=== PATIENT | male | born 1940 | race Caucasian/White ===

== ENCOUNTER 2016-07-09 13:11 | Emergency (ER) | payer MEDICARE ==
[2016-07-09] MEDS ORDERED: KETOROLAC 30 MG/ML VIAL (J1885) As Ordered ONE (14:29)
[2016-07-09] MEDS ORDERED: ONDANSETRON 4MG/2ML VIAL (J2405) As Ordered ONE (14:29)
[2016-07-09 14:45] LABS: BASO # 0.2 K/mm3 (0.0-0.2); BASO % 1.8 % (0.0-1.0); EOS # 0.3 K/mm3 (0.0-0.50); EOS % 3.6 % (0.0-3.0); LARGE UNSTAINED CELL # 0.1 K/mm3 (0.0-0.4); LARGE UNSTAINED CELL % 1.3 % (0.0-4.0); LYMPH # 1.5 K/mm3 (1.5-4.5); LYMPH % 16.7 % (24.0-44.0); MEAN CORPUSCULAR HEMOGLOBIN 31.4 pg (27.0-33.0); MEAN CORPUSCULAR HGB CONC 34.2 g/dl (32.0-36.5); MEAN CORPUSCULAR VOLUME 91.8 fl (80.0-96.0); MONO # 0.6 K/mm3 (0.0-0.8); MONO % 7.2 % (0.0-5.0); NEUTROPHILS # 5.9 K/mm3 (1.8-7.7); NEUTROPHILS % 69.3 % (36.0-66.0); PLATELET COUNT, AUTOMATED 230 k/mm3 (150-450); RED CELL DISTRIBUTION WIDTH 13.6 % (11.5-14.5); WHITE BLOOD COUNT 8.5 K/mm3 (4.0-10.0)
[2016-07-09 14:54] LABS: INR 1.01
[2016-07-09 15:50] LABS: ALBUMIN/GLOBULIN RATIO 1.67 (1.00-1.93); ALKALINE PHOSPHATASE 79 U/L (45-117); ALT/SGPT 29 U/L (12-78); AMYLASE 94 U/L (25-115); ANION GAP 7 MEQ/L (8-16); AST/SGOT 21 U/L (15-37); BILIRUBIN,DIRECT 0.1 MG/DL (0.0-0.2); BILIRUBIN,TOTAL 0.5 MG/DL (0.2-1.0); BLOOD UREA NITROGEN 19 MG/DL (7-18); CALCIUM LEVEL 9.2 MG/DL (8.8-10.2); CARBON DIOXIDE LEVEL 29 MEQ/L (21-32); CHLORIDE LEVEL 111 MEQ/L (98-107); CREATININE FOR GFR 0.87 MG/DL (0.70-1.30); GLOMERULAR FILTRATION RATE > 60.0 (>42); GLUCOSE, FASTING 91 MG/DL (83-110); POTASSIUM SERUM 4.2 MEQ/L (3.5-5.1); SODIUM LEVEL 147 MEQ/L (136-145); TOTAL PROTEIN 6.4 GM/DL (6.4-8.2)
--- NOTE | 2016-07-09 16:08 | EDDOCDS ---
Nurse's Notes [facility] Name: Robel Padron Age: 75 yrs Sex: Male : 1940 Arrival Date: 07/09/2016 Time: 13:11 Bed 12 Private MD: Dl Mancia M Diagnosis: Abdominal and pelvic pain Presentation: 07/09 13:16 Presenting complaint: Patient states: Right inguinal pain since last nigh. relief with rs3 sitting and lying. worse with walking. Adult Sepsis Screening: The patient does not have new or worsening altered mentation. Patient's respiratory rate is less than 22. Systolic blood pressure is greater than 100. Patient has a qSOFA score of 0- Negative Sepsis Screen. Suicide/Homicide risk assessment- the patient denies having any suicidal and/or homicidal ideations and does not present with any other emotional, behavioral or mental health complaints. Status: Patient is not a sales service professional or dependent. Transition of care: patient was not received from another setting of care. 13:16 Acuity: RABIA Level 3 rs3 13:16 Method Of Arrival: Walkin/Carried/Asstd rs3 Triage Assessment: 13:18 General: Appears in no apparent distress. Pain: Location: right femoral area. GI: rs3 Reports lower abdominal pain. Historical: - Allergies: PENICILLINS (Unknown); - Home Meds: 1. verapamil 240 mg Oral TbER 1 tab once daily 2. lisinopril 10 mg Oral tab 1 tab once daily - PMHx: BPH; Chronic Back pain; Hypertension; Kidney stones; - PSHx: Skin Cancer removal; Hernia repair; - Social history: Smoking status: Patient states former smoker of tobacco. No barriers to communication noted, The patient speaks fluent German. - Family history: Not pertinent. - : The pt / caregiver states he / she is not on anticoagulants. Home medication list is obtained from the patient. - Exposure Risk Screening:: None identified. Screenin:35 Screening information is obtained from the patient. Fall risk: No risks identified. pml Assistance ADL's: requires no assistance with activities of daily living. Abuse/DV Screen: The patient / caregiver reports he/she is: not in a situation that causes fear, pain or injury. Nutritional screening: No deficits noted. Advance Directives: Currently, there is no health care proxy. home support is adequate. Assessment: 14:35 General: Appears in no apparent distress, Behavior is appropriate for age, cooperative. pml Pain: Location: right lower quadrant Pain currently is 8 out of 10 on a pain scale. Neurological: Level of Consciousness is awake, alert, Oriented to person, place, time. Cardiovascular: Capillary refill < 3 seconds. Respiratory: Airway is patent Respiratory effort is even, unlabored. GI: Abdomen is non- distended Bowel sounds present X 4 quads. Abd is soft X 4 quads Reports lower abdominal pain, Denies nausea, vomiting. : Denies burning with urination, inability to void. Derm: Skin is pink, warm & dry. 16:04 General: Appears in no apparent distress, comfortable, Behavior is appropriate for age, kc3 cooperative. Neurological: Level of Consciousness is awake, alert, obeys commands, Oriented to person, place, time. Respiratory: Respiratory effort is even, unlabored. Derm: Skin is pink, warm & dry. Vital Signs: 13:12 BP 174 / 79; Pulse 65; Resp 16; Temp 97.0(O); Pulse Ox 99% on R/A; Weight 89.81 kg (R); elp Height 6 ft. 1 in. (185.42 cm) (R); 16:05 BP 179 / 83; Pulse 62; Resp 18; Temp 97(O); Pulse Ox 97% on R/A; kc3 13:12 Body Mass Index 26.12 (89.81 kg, 185.42 cm) el Vitals: 13:12 Log In Time: July 09, 2016 at 13:10. el ED Course: 13:12 Patient visited by Edith Soto PCA. elp 13:12 Dl Mancia is Private Physician. elp 13:12 Patient moved to Waiting elp 13:13 Patient visited by Edith Soto PCA. elp 13:13 Patient moved to Pre RCE elp 13:17 Triage Initiated rs3 13:51 Alyssa Yan,REJI is Primary Nurse. jjr 13:51 Patient moved to 12 jjr 13:59 [facility] ke 13:59 Patient visited by Avinsah Vo FNP. ke 13:59 Patient visited by Avinash Vo FNP. ke 14:35 The patient / caregiver is instructed regarding the plan of care and ED course. Patient pml has correct armband on for positive identification. Placed in gown. Bed in low position. Call light in reach. Side rails up X2. 14:36 Patient visited by Alyssa Yan RN. [facility] 14:36 Inserted peripheral IV: 18gauge IV in left antecubital area and blood collected. pml Patient tolerated the procedure well. 15:13 Patient visited by Avinash Vo FNP. марина 15:44 Patient visited by Avinash Vo FNP. ke 15:55 Dl Mancia is Referral Physician. ke 16:04 Discontinued IV lock intact, bleeding controlled, pressure dressing applied, No kc3 redness/swelling at site. No procedures done that require assistance. Administered Medications: 14:41 Drug: NS 0.9% 1000 ml [sodium chloride 0.9 % injection syringe] Route: IV; Rate: 100 pml mL/hr; Site: left antecubital; 14:42 Drug: Ondansetron 4 mg [ondansetron HCl 2 mg/mL intravenous solution (2 mL)] Route: pml IVP; Site: left antecubital; 14:42 Drug: ketorolac 30 mg [ketorolac 30 mg/mL (1 mL) injection solution (1 mL)] Route: IVP; pml Site: left antecubital; Order Results: Lab Order: Amylase; SPEC'M 07/09/16 15:05 Test: AMYLASE; Value: 94; Range: 25-115; Units: U/L; Status: F Lab Order: Basic Metabolic Profile; SPEC'M 07/09/16 15:05 Test: GLUCOSE, FASTING; Value: 91; Range: 83-110; Units: MG/DL; Status: F Test: BLOOD UREA NITROGEN; Value: 19; Range: 7-18; Abnormal: Above high normal; Units: MG/DL; Status: F Test: CREATININE FOR GFR; Value: 0.87; Range: 0.70-1.30; Units: MG/DL; Status: F Test: GLOMERULAR FILTRATION RATE; Value: > 60.0; Range: >42; Status: F Test: SODIUM LEVEL; Value: 147; Range: 136-145; Abnormal: Above high normal; Units: MEQ/L; Status: F Test: POTASSIUM SERUM; Value: 4.2; Range: 3.5-5.1; Units: MEQ/L; Status: F Test: CHLORIDE LEVEL; Value: 111; Range: 98-107; Abnormal: Above high normal; Units: MEQ/L; Status: F Test: CARBON DIOXIDE LEVEL; Value: 29; Range: 21-32; Units: MEQ/L; Status: F Test: ANION GAP; Value: 7; Range: 8-16; Abnormal: Below low normal; Units: MEQ/L; Status: F Test: CALCIUM LEVEL; Value: 9.2; Range: 8.8-10.2; Units: MG/DL; Status: F Test Note: ; Units are mL/min/1.73 m2 Chronic Kidney Disease Staging per NKF: Stage I & II GFR >=60 Normal to Mildly Decreased Stage III GFR 30-59 Moderately Decreased Stage IV GFR 15-29 Severely Decreased Stage V GFR <15 Very Little GFR Left ESRD GFR <15 on STEAM DRIER TENDER Lab Order: CBC with Diff; SPEC'M 07/09/16 14:27 Test: WHITE BLOOD COUNT; Value: 8.5; Range: 4.0-10.0; Units: K/mm3; Status: F Test: RED BLOOD COUNT; Value: 4.99; Range: 4.30-6.10; Units: M/mm3; Status: F Test: HEMOGLOBIN; Value: 15.7; Range: 14.0-18.0; Units: g/dl; Status: F Test: HEMATOCRIT; Value: 45.9; Range: 42.0-52.0; Units: %; Status: F Test: MEAN CORPUSCULAR VOLUME; Value: 91.8; Range: 80.0-96.0; Units: fl; Status: F Test: MEAN CORPUSCULAR HEMOGLOBIN; Value: 31.4; Range: 27.0-33.0; Units: pg; Status: F Test: MEAN CORPUSCULAR HGB CONC; Value: 34.2; Range: 32.0-36.5; Units: g/dl; Status: F Test: RED CELL DISTRIBUTION WIDTH; Value: 13.6; Range: 11.5-14.5; Units: %; Status: F Test: PLATELET COUNT, AUTOMATED; Value: 230; Range: 150-450; Units: k/mm3; Status: F Test: NEUTROPHILS %; Value: 69.3; Range: 36.0-66.0; Abnormal: Above high normal; Units: %; Status: F Test: LYMPH %; Value: 16.7; Range: 24.0-44.0; Abnormal: Below low normal; Units: %; Status: F Test: MONO %; Value: 7.2; Range: 0.0-5.0; Abnormal: Above high normal; Units: %; Status: F Test: EOS %; Value: 3.6; Range: 0.0-3.0; Abnormal: Above high normal; Units: %; Status: F Test: BASO %; Value: 1.8; Range: 0.0-1.0; Abnormal: Above high normal; Units: %; Status: F Test: LARGE UNSTAINED CELL %; Value: 1.3; Range: 0.0-4.0; Units: %; Status: F Test: NEUTROPHILS #; Value: 5.9; Range: 1.8-7.7; Units: K/mm3; Status: F Test: LYMPH #; Value: 1.5; Range: 1.5-4.5; Units: K/mm3; Status: F Test: MONO #; Value: 0.6; Range: 0.0-0.8; Units: K/mm3; Status: F Test: EOS #; Value: 0.3; Range: 0.0-0.50; Units: K/mm3; Status: F Test: BASO #; Value: 0.2; Range: 0.0-0.2; Units: K/mm3; Status: F Test: LARGE UNSTAINED CELL #; Value: 0.1; Range: 0.0-0.4; Units: K/mm3; Status: F Lab Order: Lipase; SPEC'M 07/09/16 15:05 Test: LIPASE; Value: 127; Range: 73-393; Units: U/L; Status: F Lab Order: Liver Profile; SPEC'M 07/09/16 15:05 Test: AST/SGOT; Value: 21; Range: 15-37; Units: U/L; Status: F Test: ALT/SGPT; Value: 29; Range: 12-78; Units: U/L; Status: F Test: ALKALINE PHOSPHATASE; Value: 79; Range: 45-117; Units: U/L; Status: F Test: BILIRUBIN,TOTAL; Value: 0.5; Range: 0.2-1.0; Units: MG/DL; Status: F Test: BILIRUBIN,DIRECT; Value: 0.1; Range: 0.0-0.2; Units: MG/DL; Status: F Test: TOTAL PROTEIN; Value: 6.4; Range: 6.4-8.2; Units: GM/DL; Status: F Test: ALBUMIN; Value: 4.0; Range: 3.2-5.2; Units: GM/DL; Status: F Test: ALBUMIN/GLOBULIN RATIO; Value: 1.67; Range: 1.00-1.93; Status: F Lab Order: Prothrombin Time Profile\E\INR; SPEC'M 07/09/16 14:27 Test: PROTHROMBIN TIME; Value: 13.4; Range: 12.3-14.5; Units: SECONDS; Status: F Test: INR; Value: 1.01; Status: F Test Note: ; THERAPUTIC HUMAN INR VALUES INDICATIONS NORMAL RANGES PROPHYLAXIS/TREATMENT OF: VENOUS THROMBOSIS 2.0-3.0 PULMONARY EMBOLISM 2.0-3.0 PREVENTION OF SYSTEMIC EMBOLISM FROM: TISSUE HEART VALVES 2.0-3.0 ACUTE MYOCARDIAL INFARCTION 2.0-3.0 VALVULAR HEART DISEASE 2.0-3.0 ATRIAL FIBRILLATION 2.0-3.0 MECHANICAL VALVES(HIGH RISK) 2.5-3.5 RECURRENT MYOCARDIAL INFARCTION 2.5-3.5 Lab Order: Urinalysis; SPEC'M 07/09/16 14:23 Test: APPEARANCE, URINE; Value: CLEAR; Range: CLEAR; Status: F Test: COLOR, URINE; Value: YELLOW; Range: YELLOW; Status: F Test: PH,URINE; Value: 5.0; Range: 5.0-9.0; Units: UNITS; Status: F Test: SPECIFIC GRAVITY URINE AUTO; Value: 1.020; Range: 1.002-1.035; Status: F Test: PROTEIN, URINE AUTO; Value: 1+; Range: NEGATIVE; Abnormal: Above high normal; Units: mg/dL; Status: F Test: GLUCOSE, URINE (UA) AUTO; Value: NEGATIVE; Range: NEGATIVE; Units: mg/dL; Status: F Test: KETONE, URINE AUTO; Value: TRACE; Range: NEGATIVE; Abnormal: Above high normal; Units: mg/dL; Status: F Test: UROBILINOGEN, URINE AUTO; Value: 0.2; Range: 0.0-2.0; Units: mg/dL; Status: F Test: BILIRUBIN, URINE AUTO; Value: NEGATIVE; Range: NEGATIVE; Status: F Test: NITRITE, URINE AUTO; Value: NEGATIVE; Range: NEGATIVE; Status: F Test: LEUKOCYTE ESTERASE, URINE AUTO; Value: NEGATIVE; Range: NEGATIVE; Status: F Test: BLOOD, URINE BLOOD; Value: NEGATIVE; Range: NEGATIVE; Status: F Test: WBC, URINE AUTO; Value: 2; Range: 0-3; Units: /HPF; Status: F Test: RBC, URINE AUTO; Value: 1; Range: 0-3; Units: /HPF; Status: F Test: BACTERIA, URINE AUTO; Value: NEGATIVE; Range: NEGATIVE; Status: F Test: SQUAMOUS EPITHELIAL CELL UR AU; Value: 0; Range: 0-6; Units: /HPF; Status: F Test: MUCUS, URINE; Value: SMALL; Range: NEGATIVE; Status: F Test: HYALINE CAST, URINE AUTO; Value: 0; Range: 0-1; Units: /LPF; Status: F Outcome: 15:55 Discharge ordered by Provider. марина 16:04 Discharge Assessment: Patient awake, alert and oriented x 3. No cognitive and/or kc3 functional deficits noted. Patient verbalized understanding of disposition instructions. 16:05 Discharge Assessment: patient administered narcotics - no. The following High Risk kc3 Discharge criteria are identified: None. Discharged to home ambulatory. Condition: stable. Discharge instructions given to patient, Instructed on discharge instructions, follow up and referral plans. medication usage, Demonstrated understanding of instructions, medications, Pt was receptive of discharge instructions/ teaching. Prescriptions given X 1. CT Study completed. Property :Personal belongings accompany Pt. 16:07 Patient left the ED. kc3 Signatures: Avinash Vo FNP FNP Tati Connelly RN RN jjr Soosairaj, Rosemary, RN RN rs3 Alyssa Yan RN RN Edith Taylor, WHOLESALE PARTS SALESPERSON WHOLESALE PARTS SALESPERSON elp Daphnie PatelRN RN kc3 Corrections: (The following items were deleted from the chart) 13:16 13:12 BP 189 / 91; Pulse 65bpm; Resp 16bpm; Pulse Ox 99% RA; Temp 97.0F Oral; 89.81 kg elp Reported; Height 6 ft. 1 in. Reported; BMI: 26.1; elp 13:19 13:16 Presenting complaint: Patient states: Right inguinal pain since last night rs3 rs3 MTDD
--- NOTE | 2016-07-09 16:08 | EDDOCDS ---
Physician Documentation [facility] Name: Robel Padron Age: 75 yrs Sex: Male : 1940 Arrival Date: 07/09/2016 Time: 13:11 Bed 12 Private MD: Dl Mancia M Disposition: 07/09/16 15:55 Discharged to Home/Self Care. Impression: Abdominal and pelvic pain. - Condition is Stable. - Discharge Instructions: Abdominal Pain, Adult. - Prescriptions for [place] 5- 325 mg Oral Tablet - take 1 tablet by ORAL route every 6 hours As needed MDD: 4 tabs; 20 tablet. - Medication Reconciliation, Local Pharmacy Hours form. - Follow up: Dl Mancia; When: 4 - 5 days; Reason: Recheck today's complaints, Continuance of care. - Problem is an ongoing problem. - Symptoms are unchanged. Historical: - Allergies: PENICILLINS (Unknown); - Home Meds: 1. verapamil 240 mg Oral TbER 1 tab once daily 2. lisinopril 10 mg Oral tab 1 tab once daily - PMHx: BPH; Chronic Back pain; Hypertension; Kidney stones; - PSHx: Skin Cancer removal; Hernia repair; - Social history: Smoking status: Patient states former smoker of tobacco. No barriers to communication noted, The patient speaks fluent Czech. - Family history: Not pertinent. - : The pt / caregiver states he / she is not on anticoagulants. Home medication list is obtained from the patient. - Exposure Risk Screening:: None identified. Vital Signs: 07/09 13:12 BP 174 / 79; Pulse 65; Resp 16; Temp 97.0(O); Pulse Ox 99% on R/A; Weight 89.81 kg / elp 198 lbs (R); Height 6 ft. 1 in. (185.42 cm) (R); 16:05 BP 179 / 83; Pulse 62; Resp 18; Temp 97(O); Pulse Ox 97% on R/A; kc3 13:12 Body Mass Index 26.12 (89.81 kg, 185.42 cm) elp MDM: 14:15 NS 0.9% 1000 ml IV at 100 mL/hr continuous ordered. ke 14:15 Ondansetron 4 mg IVP once ordered. ke 14:15 ketorolac 30 mg IVP once ordered. ke 14:15 IV Saline Lock ordered. ke 14:15 Undress patient appropriately for examination ordered. ke 14:16 NOTHING BY MOUTH+DIET ordered. EDMS 14:16 Amylase Ordered. EDMS 14:16 Basic Metabolic Profile Ordered. EDMS 14:16 CBC with Diff Ordered. EDMS 14:16 Lipase Ordered. EDMS 14:16 Liver Profile Ordered. EDMS 14:16 Prothrombin Time Profile\E\INR Ordered. EDMS 14:16 Urinalysis Ordered. EDMS 14:16 CT ABD & PELVIS: No Contrast Ordered. EDMS 15:51 Basic Metabolic Profile Reviewed. ke 15:51 CBC with Diff Reviewed. ke 15:51 Urinalysis Reviewed. ke 15:51 Amylase Reviewed. ke 15:51 Lipase Reviewed. ke 15:51 Liver Profile Reviewed. ke 15:51 Prothrombin Time Profile\E\INR Reviewed. ke Administered Medications: 14:41 Drug: NS 0.9% 1000 ml [sodium chloride 0.9 % injection syringe] Route: IV; Rate: 100 pml mL/hr; Site: left antecubital; 14:42 Drug: Ondansetron 4 mg [ondansetron HCl 2 mg/mL intravenous solution (2 mL)] Route: pml IVP; Site: left antecubital; 14:42 Drug: ketorolac 30 mg [ketorolac 30 mg/mL (1 mL) injection solution (1 mL)] Route: IVP; pml Site: left antecubital; Signatures: Dispatcher [employer] EDAvinash Monte, TRAIL CONSTRUCTION WORKER TRAIL CONSTRUCTION WORKER Yanique Washington RN RN rs3 Alyssa Yan RN RN pml Daphnie Patel RN RN kc3 MTDD
--- NOTE | 2016-07-10 11:24 | REP ---
CT of the abdomen pelvis without IV and oral contrast: Comparison is 06/01/2014. On the comparison study there was a 6 mm nodule in the posterior sulcus of the right lung. On the study today this nodule is again identified and is unchanged in size shape or appearance, therefore likely benign. On the comparison study there was a 7 mm nodule in the left lower lobe. On the study today this nodule appears to be a vascular artifact and is no longer visualized. The lower lung green are otherwise unremarkable. There are multiple cysts in the left hepatic lobe as previously. The largest nodule today measures 8.4 cm (8.7 cm previously. The hepatic parenchyma is otherwise unremarkable. There are multiple gallbladder calculi. This is similar to the prior study. There is no evidence of acute cholecystitis or biliary duct dilatation, as previously. The pancreas and spleen are normal size and unremarkable. There are two large cysts in the left kidney the largest is at the lower pole and measures 10.6 cm (9.8 cm previously). The left kidney there is a tiny 3 ml calcification in the upper pole. On the prior study there was a 3 mm calcification in the lower pole. The right kidney is otherwise unremarkable. The abdominal aorta is unremarkable except for occasional calcified atheroma. There is no bowel distension. No inflammatory changes in the mesentery. No ascites. Pelvis: The appendix is unremarkable. The prostate is markedly enlarged, similar to the comparison study. The prostate three measures 8.4 cm transversely (9.0 cm previously. The bladder is nondistended and cannot be evaluated. There is no pelvic adenopathy. There are occasional diverticula in the sigmoid colon. There is no CT evidence of diverticulitis. There are benign bone islands in this pubic symphysis bilaterally, unchanged. Impression: The prostate is markedly enlarged and has decreased in size from the prior study. There are hepatic and left renal cysts. There is cholelithiasis without acute cholecystitis. Small nonobstructive right renal calculus. Lung nodules as described. Signed by Jorge L Saldaña MD 07/09/2016 03:05 P
--- NOTE | 2016-07-11 17:08 | EDDOCDS ---
Physician Documentation [facility] Name: Robel Padron Age: 75 yrs Sex: Male : 1940 Arrival Date: 07/09/2016 Time: 13:11 Bed 12 Private MD: Dl Mancia M Disposition: 07/09/16 15:55 Discharged to Home/Self Care. Impression: Abdominal and pelvic pain. - Condition is Stable. - Discharge Instructions: Abdominal Pain, Adult. - Prescriptions for [place] 5- 325 mg Oral Tablet - take 1 tablet by ORAL route every 6 hours As needed MDD: 4 tabs; 20 tablet. - Medication Reconciliation, Local Pharmacy Hours form. - Follow up: Dl Mancia; When: 4 - 5 days; Reason: Recheck today's complaints, Continuance of care. - Problem is an ongoing problem. - Symptoms are unchanged. Historical: - Allergies: PENICILLINS (Unknown); - Home Meds: 1. verapamil 240 mg Oral TbER 1 tab once daily 2. lisinopril 10 mg Oral tab 1 tab once daily - PMHx: BPH; Chronic Back pain; Hypertension; Kidney stones; - PSHx: Skin Cancer removal; Hernia repair; - Social history: Smoking status: Patient states former smoker of tobacco. No barriers to communication noted, The patient speaks fluent Tajik. - Family history: Not pertinent. - : The pt / caregiver states he / she is not on anticoagulants. Home medication list is obtained from the patient. - Exposure Risk Screening:: None identified. Vital Signs: 07/09 13:12 BP 174 / 79; Pulse 65; Resp 16; Temp 97.0(O); Pulse Ox 99% on R/A; Weight 89.81 kg / elp 198 lbs (R); Height 6 ft. 1 in. (185.42 cm) (R); 16:05 BP 179 / 83; Pulse 62; Resp 18; Temp 97(O); Pulse Ox 97% on R/A; kc3 13:12 Body Mass Index 26.12 (89.81 kg, 185.42 cm) elp MDM: 14:15 NS 0.9% 1000 ml IV at 100 mL/hr continuous ordered. ke 14:15 Ondansetron 4 mg IVP once ordered. ke 14:15 ketorolac 30 mg IVP once ordered. ke 14:15 IV Saline Lock ordered. ke 14:15 Undress patient appropriately for examination ordered. ke 14:16 NOTHING BY MOUTH+DIET ordered. EDMS 14:16 Amylase Ordered. EDMS 14:16 Basic Metabolic Profile Ordered. EDMS 14:16 CBC with Diff Ordered. EDMS 14:16 Lipase Ordered. EDMS 14:16 Liver Profile Ordered. EDMS 14:16 Prothrombin Time Profile\E\INR Ordered. EDMS 14:16 Urinalysis Ordered. EDMS 14:16 CT ABD & PELVIS: No Contrast Ordered. EDMS 15:51 Basic Metabolic Profile Reviewed. ke 15:51 CBC with Diff Reviewed. ke 15:51 Urinalysis Reviewed. ke 15:51 Amylase Reviewed. ke 15:51 Lipase Reviewed. ke 15:51 Liver Profile Reviewed. ke 15:51 Prothrombin Time Profile\E\INR Reviewed. ke 16:13 Financial registration complete. [id number] 16:15 [facility] [place] Agreement was scanned into [employer] and attached to record. ks 21:33 T-Sheet-- Draft Copy was scanned into [employer] and attached to record. klr 07/10 13:23 ED course: dr mancia faxed formal report of ct abd/p for fu mlg. ml Administered Medications: 07/09 14:41 Drug: NS 0.9% 1000 ml [sodium chloride 0.9 % injection syringe] Route: IV; Rate: 100 pml mL/hr; Site: left antecubital; 14:42 Drug: Ondansetron 4 mg [ondansetron HCl 2 mg/mL intravenous solution (2 mL)] Route: pml IVP; Site: left antecubital; 14:42 Drug: ketorolac 30 mg [ketorolac 30 mg/mL (1 mL) injection solution (1 mL)] Route: IVP; pml Site: left antecubital; Signatures: Dispatcher [employer] EDMS Benito Talamantes MD MD ml Elsner, Karl, LEAK OPERATOR [employer] LEAK OPERATOR [employer] Yanique Washington RN RN rs3 Alyssa Yan RN RN pml Crane, Kelsi, RN RN kc3 Izzy Khan, Reg Reg ks16 Krystin Berry The chart was reviewed and I authenticate all verbal orders and agree with the evaluation and treatment provided.Attachments: 16:15 [facility] [place] Agreement [email or web address] 21:33 T-Sheet-- Draft Copy klr Chart Complete MTDD
--- NOTE | 2016-07-11 17:08 | EDDOCDS ---
Physician Documentation [facility] Name: Robel Padron Age: 75 yrs Sex: Male : 1940 Arrival Date: 07/09/2016 Time: 13:11 Bed 12 Private MD: Dl Mancia M Disposition: 07/09/16 15:55 Discharged to Home/Self Care. Impression: Abdominal and pelvic pain. - Condition is Stable. - Discharge Instructions: Abdominal Pain, Adult. - Prescriptions for [place] 5- 325 mg Oral Tablet - take 1 tablet by ORAL route every 6 hours As needed MDD: 4 tabs; 20 tablet. - Medication Reconciliation, Local Pharmacy Hours form. - Follow up: Dl Mancia; When: 4 - 5 days; Reason: Recheck today's complaints, Continuance of care. - Problem is an ongoing problem. - Symptoms are unchanged. Historical: - Allergies: PENICILLINS (Unknown); - Home Meds: 1. verapamil 240 mg Oral TbER 1 tab once daily 2. lisinopril 10 mg Oral tab 1 tab once daily - PMHx: BPH; Chronic Back pain; Hypertension; Kidney stones; - PSHx: Skin Cancer removal; Hernia repair; - Social history: Smoking status: Patient states former smoker of tobacco. No barriers to communication noted, The patient speaks fluent Setswana. - Family history: Not pertinent. - : The pt / caregiver states he / she is not on anticoagulants. Home medication list is obtained from the patient. - Exposure Risk Screening:: None identified. Vital Signs: 07/09 13:12 BP 174 / 79; Pulse 65; Resp 16; Temp 97.0(O); Pulse Ox 99% on R/A; Weight 89.81 kg / elp 198 lbs (R); Height 6 ft. 1 in. (185.42 cm) (R); 16:05 BP 179 / 83; Pulse 62; Resp 18; Temp 97(O); Pulse Ox 97% on R/A; kc3 13:12 Body Mass Index 26.12 (89.81 kg, 185.42 cm) elp MDM: 14:15 NS 0.9% 1000 ml IV at 100 mL/hr continuous ordered. ke 14:15 Ondansetron 4 mg IVP once ordered. ke 14:15 ketorolac 30 mg IVP once ordered. ke 14:15 IV Saline Lock ordered. ke 14:15 Undress patient appropriately for examination ordered. ke 14:16 NOTHING BY MOUTH+DIET ordered. EDMS 14:16 Amylase Ordered. EDMS 14:16 Basic Metabolic Profile Ordered. EDMS 14:16 CBC with Diff Ordered. EDMS 14:16 Lipase Ordered. EDMS 14:16 Liver Profile Ordered. EDMS 14:16 Prothrombin Time Profile\E\INR Ordered. EDMS 14:16 Urinalysis Ordered. EDMS 14:16 CT ABD & PELVIS: No Contrast Ordered. EDMS 15:51 Basic Metabolic Profile Reviewed. ke 15:51 CBC with Diff Reviewed. ke 15:51 Urinalysis Reviewed. ke 15:51 Amylase Reviewed. ke 15:51 Lipase Reviewed. ke 15:51 Liver Profile Reviewed. ke 15:51 Prothrombin Time Profile\E\INR Reviewed. ke 16:13 Financial registration complete. [id number] 16:15 [facility] Payment Agreement was scanned into [employer] and attached to record. ks 21:33 T-Sheet-- Draft Copy was scanned into [employer] and attached to record. klr 07/10 13:23 ED course: dr mancia faxed formal report of ct abd/p for fu mlg. ml Administered Medications: 07/09 14:41 Drug: NS 0.9% 1000 ml [sodium chloride 0.9 % injection syringe] Route: IV; Rate: 100 pml mL/hr; Site: left antecubital; 14:42 Drug: Ondansetron 4 mg [ondansetron HCl 2 mg/mL intravenous solution (2 mL)] Route: pml IVP; Site: left antecubital; 14:42 Drug: ketorolac 30 mg [ketorolac 30 mg/mL (1 mL) injection solution (1 mL)] Route: IVP; pml Site: left antecubital; Signatures: Dispatcher [employer] EDMS Benito Talamantes MD MD ml Elsner, Karl, SPRING FLOOR SERVICE WORKER SPRING FLOOR SERVICE WORKER Yanique Washington RN RN rs3 Alyssa Yan RN RN pml Crane, Kelsi, RN RN kc3 Izzy Khan, Reg Reg ks16 Krystin Berry The chart was reviewed and I authenticate all verbal orders and agree with the evaluation and treatment provided.Attachments: 16:15 [facility] Payment Agreement [email or web address] 21:33 T-Sheet-- Draft Copy klr Chart Complete MTDD
--- NOTE | 2016-07-11 17:08 | EDDOCDS ---
Nurse's Notes [facility] Name: Robel Padron Age: 75 yrs Sex: Male : 1940 Arrival Date: 07/09/2016 Time: 13:11 Bed 12 Private MD: Dl Mancia M Diagnosis: Abdominal and pelvic pain Presentation: 07/09 13:16 Presenting complaint: Patient states: Right inguinal pain since last nigh. relief with rs3 sitting and lying. worse with walking. Adult Sepsis Screening: The patient does not have new or worsening altered mentation. Patient's respiratory rate is less than 22. Systolic blood pressure is greater than 100. Patient has a qSOFA score of 0- Negative Sepsis Screen. Suicide/Homicide risk assessment- the patient denies having any suicidal and/or homicidal ideations and does not present with any other emotional, behavioral or mental health complaints. Status: Patient is not a sales service route manager or dependent. Transition of care: patient was not received from another setting of care. 13:16 Acuity: RABIA Level 3 rs3 13:16 Method Of Arrival: Walkin/Carried/Asstd rs3 Triage Assessment: 13:18 General: Appears in no apparent distress. Pain: Location: right femoral area. GI: rs3 Reports lower abdominal pain. Historical: - Allergies: PENICILLINS (Unknown); - Home Meds: 1. verapamil 240 mg Oral TbER 1 tab once daily 2. lisinopril 10 mg Oral tab 1 tab once daily - PMHx: BPH; Chronic Back pain; Hypertension; Kidney stones; - PSHx: Skin Cancer removal; Hernia repair; - Social history: Smoking status: Patient states former smoker of tobacco. No barriers to communication noted, The patient speaks fluent Spanish. - Family history: Not pertinent. - : The pt / caregiver states he / she is not on anticoagulants. Home medication list is obtained from the patient. - Exposure Risk Screening:: None identified. Screenin:35 Screening information is obtained from the patient. Fall risk: No risks identified. pml Assistance ADL's: requires no assistance with activities of daily living. Abuse/DV Screen: The patient / caregiver reports he/she is: not in a situation that causes fear, pain or injury. Nutritional screening: No deficits noted. Advance Directives: Currently, there is no health care proxy. home support is adequate. Assessment: 14:35 General: Appears in no apparent distress, Behavior is appropriate for age, cooperative. pml Pain: Location: right lower quadrant Pain currently is 8 out of 10 on a pain scale. Neurological: Level of Consciousness is awake, alert, Oriented to person, place, time. Cardiovascular: Capillary refill < 3 seconds. Respiratory: Airway is patent Respiratory effort is even, unlabored. GI: Abdomen is non- distended Bowel sounds present X 4 quads. Abd is soft X 4 quads Reports lower abdominal pain, Denies nausea, vomiting. : Denies burning with urination, inability to void. Derm: Skin is pink, warm & dry. 16:04 General: Appears in no apparent distress, comfortable, Behavior is appropriate for age, kc3 cooperative. Neurological: Level of Consciousness is awake, alert, obeys commands, Oriented to person, place, time. Respiratory: Respiratory effort is even, unlabored. Derm: Skin is pink, warm & dry. Vital Signs: 13:12 BP 174 / 79; Pulse 65; Resp 16; Temp 97.0(O); Pulse Ox 99% on R/A; Weight 89.81 kg (R); elp Height 6 ft. 1 in. (185.42 cm) (R); 16:05 BP 179 / 83; Pulse 62; Resp 18; Temp 97(O); Pulse Ox 97% on R/A; kc3 13:12 Body Mass Index 26.12 (89.81 kg, 185.42 cm) el Vitals: 13:12 Log In Time: July 09, 2016 at 13:10. el ED Course: 13:12 Patient visited by Edith Soto PCA. elp 13:12 Dl Mancia is Private Physician. elp 13:12 Patient moved to Waiting elp 13:13 Patient visited by Edith Soto PCA. elp 13:13 Patient moved to Pre RCE elp 13:17 Triage Initiated rs3 13:51 Alyssa Yan,REJI is Primary Nurse. jjr 13:51 Patient moved to 12 jjr 13:59 [facility]ash Vo F[facility]. ke 13:59 Patient visited by Avinash Vo FNP. ke 13:59 Patient visited by Avinash Vo FNP. ke 14:35 The patient / caregiver is instructed regarding the plan of care and ED course. Patient pml has correct armband on for positive identification. Placed in gown. Bed in low position. Call light in reach. Side rails up X2. 14:36 Patient visited by Alyssa Yan RN. pml 14:36 Inserted peripheral IV: 18gauge IV in left antecubital area and blood collected. pml Patient tolerated the procedure well. 15:13 Patient visited by Avinash Vo FNP. ke 15:44 Patient visited by Avinash Vo FNP. ke 15:55 Dl Mancia is Referral Physician. ke 16:04 Discontinued IV lock intact, bleeding controlled, pressure dressing applied, No kc3 redness/swelling at site. No procedures done that require assistance. 16:15 [facility] Payment Agreement was scanned into [employer] and attached to record. [id number] 21:33 T-Sheet-- Draft Copy was scanned into [employer] and attached to record. klr 07/10 11:53 CT ABD & PELVIS: No Contrast Returned. EDMS Administered Medications: 07/09 14:41 Drug: NS 0.9% 1000 ml [sodium chloride 0.9 % injection syringe] Route: IV; Rate: 100 pml mL/hr; Site: left antecubital; 14:42 Drug: Ondansetron 4 mg [ondansetron HCl 2 mg/mL intravenous solution (2 mL)] Route: pml IVP; Site: left antecubital; 14:42 Drug: ketorolac 30 mg [ketorolac 30 mg/mL (1 mL) injection solution (1 mL)] Route: IVP; pml Site: left antecubital; Order Results: Lab Order: Amylase; SPEC'M 07/09/16 15:05 Test: AMYLASE; Value: 94; Range: 25-115; Units: U/L; Status: F Lab Order: Basic Metabolic Profile; SPEC'M 07/09/16 15:05 Test: GLUCOSE, FASTING; Value: 91; Range: 83-110; Units: MG/DL; Status: F Test: BLOOD UREA NITROGEN; Value: 19; Range: 7-18; Abnormal: Above high normal; Units: MG/DL; Status: F Test: CREATININE FOR GFR; Value: 0.87; Range: 0.70-1.30; Units: MG/DL; Status: F Test: GLOMERULAR FILTRATION RATE; Value: > 60.0; Range: >42; Status: F Test: SODIUM LEVEL; Value: 147; Range: 136-145; Abnormal: Above high normal; Units: MEQ/L; Status: F Test: POTASSIUM SERUM; Value: 4.2; Range: 3.5-5.1; Units: MEQ/L; Status: F Test: CHLORIDE LEVEL; Value: 111; Range: 98-107; Abnormal: Above high normal; Units: MEQ/L; Status: F Test: CARBON DIOXIDE LEVEL; Value: 29; Range: 21-32; Units: MEQ/L; Status: F Test: ANION GAP; Value: 7; Range: 8-16; Abnormal: Below low normal; Units: MEQ/L; Status: F Test: CALCIUM LEVEL; Value: 9.2; Range: 8.8-10.2; Units: MG/DL; Status: F Test Note: ; Units are mL/min/1.73 m2 Chronic Kidney Disease Staging per NKF: Stage I & II GFR >=60 Normal to Mildly Decreased Stage III GFR 30-59 Moderately Decreased Stage IV GFR 15-29 Severely Decreased Stage V GFR <15 Very Little GFR Left ESRD GFR <15 on ENERGY ADMINISTRATOR Lab Order: CBC with Diff; SPEC'M 07/09/16 14:27 Test: WHITE BLOOD COUNT; Value: 8.5; Range: 4.0-10.0; Units: K/mm3; Status: F Test: RED BLOOD COUNT; Value: 4.99; Range: 4.30-6.10; Units: M/mm3; Status: F Test: HEMOGLOBIN; Value: 15.7; Range: 14.0-18.0; Units: g/dl; Status: F Test: HEMATOCRIT; Value: 45.9; Range: 42.0-52.0; Units: %; Status: F Test: MEAN CORPUSCULAR VOLUME; Value: 91.8; Range: 80.0-96.0; Units: fl; Status: F Test: MEAN CORPUSCULAR HEMOGLOBIN; Value: 31.4; Range: 27.0-33.0; Units: pg; Status: F Test: MEAN CORPUSCULAR HGB CONC; Value: 34.2; Range: 32.0-36.5; Units: g/dl; Status: F Test: RED CELL DISTRIBUTION WIDTH; Value: 13.6; Range: 11.5-14.5; Units: %; Status: F Test: PLATELET COUNT, AUTOMATED; Value: 230; Range: 150-450; Units: k/mm3; Status: F Test: NEUTROPHILS %; Value: 69.3; Range: 36.0-66.0; Abnormal: Above high normal; Units: %; Status: F Test: LYMPH %; Value: 16.7; Range: 24.0-44.0; Abnormal: Below low normal; Units: %; Status: F Test: MONO %; Value: 7.2; Range: 0.0-5.0; Abnormal: Above high normal; Units: %; Status: F Test: EOS %; Value: 3.6; Range: 0.0-3.0; Abnormal: Above high normal; Units: %; Status: F Test: BASO %; Value: 1.8; Range: 0.0-1.0; Abnormal: Above high normal; Units: %; Status: F Test: LARGE UNSTAINED CELL %; Value: 1.3; Range: 0.0-4.0; Units: %; Status: F Test: NEUTROPHILS #; Value: 5.9; Range: 1.8-7.7; Units: K/mm3; Status: F Test: LYMPH #; Value: 1.5; Range: 1.5-4.5; Units: K/mm3; Status: F Test: MONO #; Value: 0.6; Range: 0.0-0.8; Units: K/mm3; Status: F Test: EOS #; Value: 0.3; Range: 0.0-0.50; Units: K/mm3; Status: F Test: BASO #; Value: 0.2; Range: 0.0-0.2; Units: K/mm3; Status: F Test: LARGE UNSTAINED CELL #; Value: 0.1; Range: 0.0-0.4; Units: K/mm3; Status: F Lab Order: Lipase; SPEC'M 07/09/16 15:05 Test: LIPASE; Value: 127; Range: 73-393; Units: U/L; Status: F Lab Order: Liver Profile; SPEC'M 07/09/16 15:05 Test: AST/SGOT; Value: 21; Range: 15-37; Units: U/L; Status: F Test: ALT/SGPT; Value: 29; Range: 12-78; Units: U/L; Status: F Test: ALKALINE PHOSPHATASE; Value: 79; Range: 45-117; Units: U/L; Status: F Test: BILIRUBIN,TOTAL; Value: 0.5; Range: 0.2-1.0; Units: MG/DL; Status: F Test: BILIRUBIN,DIRECT; Value: 0.1; Range: 0.0-0.2; Units: MG/DL; Status: F Test: TOTAL PROTEIN; Value: 6.4; Range: 6.4-8.2; Units: GM/DL; Status: F Test: ALBUMIN; Value: 4.0; Range: 3.2-5.2; Units: GM/DL; Status: F Test: ALBUMIN/GLOBULIN RATIO; Value: 1.67; Range: 1.00-1.93; Status: F Lab Order: Prothrombin Time Profile\E\INR; SPEC'M 07/09/16 14:27 Test: PROTHROMBIN TIME; Value: 13.4; Range: 12.3-14.5; Units: SECONDS; Status: F Test: INR; Value: 1.01; Status: F Test Note: ; THERAPUTIC HUMAN INR VALUES INDICATIONS NORMAL RANGES PROPHYLAXIS/TREATMENT OF: VENOUS THROMBOSIS 2.0-3.0 PULMONARY EMBOLISM 2.0-3.0 PREVENTION OF SYSTEMIC EMBOLISM FROM: TISSUE HEART VALVES 2.0-3.0 ACUTE MYOCARDIAL INFARCTION 2.0-3.0 VALVULAR HEART DISEASE 2.0-3.0 ATRIAL FIBRILLATION 2.0-3.0 MECHANICAL VALVES(HIGH RISK) 2.5-3.5 RECURRENT MYOCARDIAL INFARCTION 2.5-3.5 Lab Order: Urinalysis; SPEC'M 07/09/16 14:23 Test: APPEARANCE, URINE; Value: CLEAR; Range: CLEAR; Status: F Test: COLOR, URINE; Value: YELLOW; Range: YELLOW; Status: F Test: PH,URINE; Value: 5.0; Range: 5.0-9.0; Units: UNITS; Status: F Test: SPECIFIC GRAVITY URINE AUTO; Value: 1.020; Range: 1.002-1.035; Status: F Test: PROTEIN, URINE AUTO; Value: 1+; Range: NEGATIVE; Abnormal: Above high normal; Units: mg/dL; Status: F Test: GLUCOSE, URINE (UA) AUTO; Value: NEGATIVE; Range: NEGATIVE; Units: mg/dL; Status: F Test: KETONE, URINE AUTO; Value: TRACE; Range: NEGATIVE; Abnormal: Above high normal; Units: mg/dL; Status: F Test: UROBILINOGEN, URINE AUTO; Value: 0.2; Range: 0.0-2.0; Units: mg/dL; Status: F Test: BILIRUBIN, URINE AUTO; Value: NEGATIVE; Range: NEGATIVE; Status: F Test: NITRITE, URINE AUTO; Value: NEGATIVE; Range: NEGATIVE; Status: F Test: LEUKOCYTE ESTERASE, URINE AUTO; Value: NEGATIVE; Range: NEGATIVE; Status: F Test: BLOOD, URINE BLOOD; Value: NEGATIVE; Range: NEGATIVE; Status: F Test: WBC, URINE AUTO; Value: 2; Range: 0-3; Units: /HPF; Status: F Test: RBC, URINE AUTO; Value: 1; Range: 0-3; Units: /HPF; Status: F Test: BACTERIA, URINE AUTO; Value: NEGATIVE; Range: NEGATIVE; Status: F Test: SQUAMOUS EPITHELIAL CELL UR AU; Value: 0; Range: 0-6; Units: /HPF; Status: F Test: MUCUS, URINE; Value: SMALL; Range: NEGATIVE; Status: F Test: HYALINE CAST, URINE AUTO; Value: 0; Range: 0-1; Units: /LPF; Status: F Radiology Order: CT ABD & PELVIS: No Contrast Test: CT ABD & PELVIS: No Contrast REASON FOR EXAMINATION: r supra pubic pain; CT of the abdomen pelvis without IV and oral contrast:; ; Comparison is 06/01/2014.; ; On the comparison study there was a 6 mm nodule in the posterior sulcus of the; right lung. On the study today this nodule is again identified and is unchanged; in size shape or appearance, therefore likely benign.; ; On the comparison study there was a 7 mm nodule in the left lower lobe. On the; study today this nodule appears to be a vascular artifact and is no longer; visualized.; ; The lower lung green are otherwise unremarkable.; ; There are multiple cysts in the left hepatic lobe as previously. The largest; nodule today measures 8.4 cm (8.7 cm previously. The hepatic parenchyma is; otherwise unremarkable.; ; There are multiple gallbladder calculi. This is similar to the prior study.; There is no evidence of acute cholecystitis or biliary duct dilatation, as; previously.; ; The pancreas and spleen are normal size and unremarkable.; ; There are two large cysts in the left kidney the largest is at the lower pole and; measures 10.6 cm (9.8 cm previously).; ; The left kidney there is a tiny 3 ml calcification in the upper pole. On the; prior study there was a 3 mm calcification in the lower pole. The right kidney; is otherwise unremarkable.; ; The abdominal aorta is unremarkable except for occasional calcified atheroma.; ; There is no bowel distension. No inflammatory changes in the mesentery. No; ascites.; ; Pelvis:; ; The appendix is unremarkable. The prostate is markedly enlarged, similar to the; comparison study. The prostate three measures 8.4 cm transversely (9.0 cm; previously.; ; The bladder is nondistended and cannot be evaluated.; ; There is no pelvic adenopathy.; ; There are occasional diverticula in the sigmoid colon. There is no CT evidence; of diverticulitis.; ; There are benign bone islands in this pubic symphysis bilaterally, unchanged.; ; Impression:; ; The prostate is markedly enlarged and has decreased in size from the prior; study.; ; There are hepatic and left renal cysts. There is cholelithiasis without acute; cholecystitis.; ; Small nonobstructive right renal calculus.; ; Lung nodules as described.; ; ; Signed by; Jorge L Saldaña MD 07/09/2016 03:05 P; Outcome: 15:55 Discharge ordered by Provider. ke 16:04 Discharge Assessment: Patient awake, alert and oriented x 3. No cognitive and/or kc3 functional deficits noted. Patient verbalized understanding of disposition instructions. 16:05 Discharge Assessment: patient administered narcotics - no. The following High Risk kc3 Discharge criteria are identified: None. Discharged to home ambulatory. Condition: stable. Discharge instructions given to patient, Instructed on discharge instructions, follow up and referral plans. medication usage, Demonstrated understanding of instructions, medications, Pt was receptive of discharge instructions/ teaching. Prescriptions given X 1. CT Study completed. Property :Personal belongings accompany Pt. 16:07 Patient left the ED. kc3 Signatures: Dispatcher [employer] EDMS Avinash Vo, WIRE MACHINE OPERATOR WIRE MACHINE OPERATOR Tati Connelly, RN RN Yanique Wright RN RN rs3 Alyssa Yan,RN RN pml Edith Soto, BUYER LIAISON BUYER LIAISON elp Daphnie Patel RN RN kc3 Izzy Khan, Reg Reg ks16 Krystin Berry klr Corrections: (The following items were deleted from the chart) 13:16 13:12 BP 189 / 91; Pulse 65bpm; Resp 16bpm; Pulse Ox 99% RA; Temp 97.0F Oral; 89.81 kg elp Reported; Height 6 ft. 1 in. Reported; BMI: 26.1; elp 13:19 13:16 Presenting complaint: Patient states: Right inguinal pain since last night rs3 rs3 Chart Complete MTDD
--- NOTE | 2016-07-17 12:05 | EDDOCDS ---
Physician Documentation [facility] Name: Robel Padron Age: 75 yrs Sex: Male : 1940 Arrival Date: 07/09/2016 Time: 13:11 Bed 12 Private MD: Dl Mancia M Disposition: 07/09/16 15:55 Discharged to Home/Self Care. Impression: Abdominal and pelvic pain. - Condition is Stable. - Discharge Instructions: Abdominal Pain, Adult. - Prescriptions for [place] 5- 325 mg Oral Tablet - take 1 tablet by ORAL route every 6 hours As needed MDD: 4 tabs; 20 tablet. - Medication Reconciliation, Local Pharmacy Hours form. - Follow up: Dl Mancia; When: 4 - 5 days; Reason: Recheck today's complaints, Continuance of care. - Problem is an ongoing problem. - Symptoms are unchanged. Historical: - Allergies: PENICILLINS (Unknown); - Home Meds: 1. verapamil 240 mg Oral TbER 1 tab once daily 2. lisinopril 10 mg Oral tab 1 tab once daily - PMHx: BPH; Chronic Back pain; Hypertension; Kidney stones; - PSHx: Skin Cancer removal; Hernia repair; - Social history: Smoking status: Patient states former smoker of tobacco. No barriers to communication noted, The patient speaks fluent Serbian. - Family history: Not pertinent. - : The pt / caregiver states he / she is not on anticoagulants. Home medication list is obtained from the patient. - Exposure Risk Screening:: None identified. Vital Signs: 07/09 13:12 BP 174 / 79; Pulse 65; Resp 16; Temp 97.0(O); Pulse Ox 99% on R/A; Weight 89.81 kg / elp 198 lbs (R); Height 6 ft. 1 in. (185.42 cm) (R); 16:05 BP 179 / 83; Pulse 62; Resp 18; Temp 97(O); Pulse Ox 97% on R/A; kc3 13:12 Body Mass Index 26.12 (89.81 kg, 185.42 cm) elp MDM: 14:15 NS 0.9% 1000 ml IV at 100 mL/hr continuous ordered. ke 14:15 Ondansetron 4 mg IVP once ordered. ke 14:15 ketorolac 30 mg IVP once ordered. ke 14:15 IV Saline Lock ordered. ke 14:15 Undress patient appropriately for examination ordered. ke 14:16 NOTHING BY MOUTH+DIET ordered. EDMS 14:16 Amylase Ordered. EDMS 14:16 Basic Metabolic Profile Ordered. EDMS 14:16 CBC with Diff Ordered. EDMS 14:16 Lipase Ordered. EDMS 14:16 Liver Profile Ordered. EDMS 14:16 Prothrombin Time Profile\E\INR Ordered. EDMS 14:16 Urinalysis Ordered. EDMS 14:16 CT ABD & PELVIS: No Contrast Ordered. EDMS 15:51 Basic Metabolic Profile Reviewed. ke 15:51 CBC with Diff Reviewed. ke 15:51 Urinalysis Reviewed. ke 15:51 Amylase Reviewed. ke 15:51 Lipase Reviewed. ke 15:51 Liver Profile Reviewed. ke 15:51 Prothrombin Time Profile\E\INR Reviewed. ke 16:13 Financial registration complete. [id number] 16:15 [facility] Payment Agreement was scanned into [employer] and attached to record. ks 21:33 T-Sheet-- Draft Copy was scanned into [employer] and attached to record. klr 07/10 13:23 ED course: dr mancia faxed formal report of ct abd/p for fu mlg. ml Administered Medications: 07/09 14:41 Drug: NS 0.9% 1000 ml [sodium chloride 0.9 % injection syringe] Route: IV; Rate: 100 pml mL/hr; Site: left antecubital; 14:42 Drug: Ondansetron 4 mg [ondansetron HCl 2 mg/mL intravenous solution (2 mL)] Route: pml IVP; Site: left antecubital; 14:42 Drug: ketorolac 30 mg [ketorolac 30 mg/mL (1 mL) injection solution (1 mL)] Route: IVP; pml Site: left antecubital; Signatures: Dispatcher [employer] EDMS Benito Talamantes MD MD ml Elsner, Karl, CENTRIFUGAL CASTING MACHINE TENDER CENTRIFUGAL CASTING MACHINE TENDER Yanique Washington RN RN rs3 Alyssa Yan RN RN pml Crane, Kelsi, RN RN kc3 Izzy Khan, Reg Reg ks16 Krystin Berry The chart was reviewed and I authenticate all verbal orders and agree with the evaluation and treatment provided.Attachments: 16:15 [facility] Payment Agreement ks16 21:33 T-Sheet-- Draft Copy klr [facility]
--- NOTE | 2016-07-17 12:05 | EDDOCDS ---
Physician Documentation [facility] Name: Robel Padron Age: 75 yrs Sex: Male : 1940 Arrival Date: 07/09/2016 Time: 13:11 Bed 12 Private MD: Dl Mancia M Disposition: 07/09/16 15:55 Discharged to Home/Self Care. Impression: Abdominal and pelvic pain. - Condition is Stable. - Discharge Instructions: Abdominal Pain, Adult. - Prescriptions for [place] 5- 325 mg Oral Tablet - take 1 tablet by ORAL route every 6 hours As needed MDD: 4 tabs; 20 tablet. - Medication Reconciliation, Local Pharmacy Hours form. - Follow up: Dl Mancia; When: 4 - 5 days; Reason: Recheck today's complaints, Continuance of care. - Problem is an ongoing problem. - Symptoms are unchanged. Historical: - Allergies: PENICILLINS (Unknown); - Home Meds: 1. verapamil 240 mg Oral TbER 1 tab once daily 2. lisinopril 10 mg Oral tab 1 tab once daily - PMHx: BPH; Chronic Back pain; Hypertension; Kidney stones; - PSHx: Skin Cancer removal; Hernia repair; - Social history: Smoking status: Patient states former smoker of tobacco. No barriers to communication noted, The patient speaks fluent Turkish. - Family history: Not pertinent. - : The pt / caregiver states he / she is not on anticoagulants. Home medication list is obtained from the patient. - Exposure Risk Screening:: None identified. Vital Signs: 07/09 13:12 BP 174 / 79; Pulse 65; Resp 16; Temp 97.0(O); Pulse Ox 99% on R/A; Weight 89.81 kg / elp 198 lbs (R); Height 6 ft. 1 in. (185.42 cm) (R); 16:05 BP 179 / 83; Pulse 62; Resp 18; Temp 97(O); Pulse Ox 97% on R/A; kc3 13:12 Body Mass Index 26.12 (89.81 kg, 185.42 cm) elp MDM: 14:15 NS 0.9% 1000 ml IV at 100 mL/hr continuous ordered. ke 14:15 Ondansetron 4 mg IVP once ordered. ke 14:15 ketorolac 30 mg IVP once ordered. ke 14:15 IV Saline Lock ordered. ke 14:15 Undress patient appropriately for examination ordered. ke 14:16 NOTHING BY MOUTH+DIET ordered. EDMS 14:16 Amylase Ordered. EDMS 14:16 Basic Metabolic Profile Ordered. EDMS 14:16 CBC with Diff Ordered. EDMS 14:16 Lipase Ordered. EDMS 14:16 Liver Profile Ordered. EDMS 14:16 Prothrombin Time Profile\E\INR Ordered. EDMS 14:16 Urinalysis Ordered. EDMS 14:16 CT ABD & PELVIS: No Contrast Ordered. EDMS 15:51 Basic Metabolic Profile Reviewed. ke 15:51 CBC with Diff Reviewed. ke 15:51 Urinalysis Reviewed. ke 15:51 Amylase Reviewed. ke 15:51 Lipase Reviewed. ke 15:51 Liver Profile Reviewed. ke 15:51 Prothrombin Time Profile\E\INR Reviewed. ke 16:13 Financial registration complete. [email or web address] 16:15 [facility] [place] Payment Agreement was scanned into C[employer] and attached to record. ks 21:33 T-Sheet-- Draft Copy was scanned into C[employer] and attached to record. klr 07/10 13:23 ED course: dr mancia faxed formal report of ct abd/p for fu mlg. ml Administered Medications: 07/09 14:41 Drug: NS 0.9% 1000 ml [sodium chloride 0.9 % injection syringe] Route: IV; Rate: 100 pml mL/hr; Site: left antecubital; 14:42 Drug: Ondansetron 4 mg [ondansetron HCl 2 mg/mL intravenous solution (2 mL)] Route: pml IVP; Site: left antecubital; 14:42 Drug: ketorolac 30 mg [ketorolac 30 mg/mL (1 mL) injection solution (1 mL)] Route: IVP; pml Site: left antecubital; Signatures: Dispatcher MedHoRowl EDMS Benito Talamantes MD MD ml Elsner, Karl, MEDICAL RECORDS SECRETARY MEDICAL RECORDS SECRETARY Yanique Washington RN RN rs3 Alyssa Yan RN RN pml Crane, Kelsi, RN RN kc3 Izzy Khan, Reg Reg ks16 Krystin Berry The chart was reviewed and I authenticate all verbal orders and agree with the evaluation and treatment provided.Attachments: 16:15 [facility] [place] Payment Agreement [email or web address] 21:33 T-Sheet-- Draft Copy klr Chart Complete MTDD
--- NOTE | 2016-07-17 12:05 | EDDOCDS ---
Physician Documentation [facility] Name: Robel Padron Age: 75 yrs Sex: Male : 1940 Arrival Date: 07/09/2016 Time: 13:11 Bed 12 Private MD: Dl Mancia M Disposition: 07/09/16 15:55 Discharged to Home/Self Care. Impression: Abdominal and pelvic pain. - Condition is Stable. - Discharge Instructions: Abdominal Pain, Adult. - Prescriptions for [place] 5- 325 mg Oral Tablet - take 1 tablet by ORAL route every 6 hours As needed MDD: 4 tabs; 20 tablet. - Medication Reconciliation, Local Pharmacy Hours form. - Follow up: Dl Mancia; When: 4 - 5 days; Reason: Recheck today's complaints, Continuance of care. - Problem is an ongoing problem. - Symptoms are unchanged. Historical: - Allergies: PENICILLINS (Unknown); - Home Meds: 1. verapamil 240 mg Oral TbER 1 tab once daily 2. lisinopril 10 mg Oral tab 1 tab once daily - PMHx: BPH; Chronic Back pain; Hypertension; Kidney stones; - PSHx: Skin Cancer removal; Hernia repair; - Social history: Smoking status: Patient states former smoker of tobacco. No barriers to communication noted, The patient speaks fluent Slovenian. - Family history: Not pertinent. - : The pt / caregiver states he / she is not on anticoagulants. Home medication list is obtained from the patient. - Exposure Risk Screening:: None identified. Vital Signs: 07/09 13:12 BP 174 / 79; Pulse 65; Resp 16; Temp 97.0(O); Pulse Ox 99% on R/A; Weight 89.81 kg / elp 198 lbs (R); Height 6 ft. 1 in. (185.42 cm) (R); 16:05 BP 179 / 83; Pulse 62; Resp 18; Temp 97(O); Pulse Ox 97% on R/A; kc3 13:12 Body Mass Index 26.12 (89.81 kg, 185.42 cm) elp MDM: 14:15 NS 0.9% 1000 ml IV at 100 mL/hr continuous ordered. ke 14:15 Ondansetron 4 mg IVP once ordered. ke 14:15 ketorolac 30 mg IVP once ordered. ke 14:15 IV Saline Lock ordered. ke 14:15 Undress patient appropriately for examination ordered. ke 14:16 NOTHING BY MOUTH+DIET ordered. EDMS 14:16 Amylase Ordered. EDMS 14:16 Basic Metabolic Profile Ordered. EDMS 14:16 CBC with Diff Ordered. EDMS 14:16 Lipase Ordered. EDMS 14:16 Liver Profile Ordered. EDMS 14:16 Prothrombin Time Profile\E\INR Ordered. EDMS 14:16 Urinalysis Ordered. EDMS 14:16 CT ABD & PELVIS: No Contrast Ordered. EDMS 15:51 Basic Metabolic Profile Reviewed. ke 15:51 CBC with Diff Reviewed. ke 15:51 Urinalysis Reviewed. ke 15:51 Amylase Reviewed. ke 15:51 Lipase Reviewed. ke 15:51 Liver Profile Reviewed. ke 15:51 Prothrombin Time Profile\E\INR Reviewed. ke 16:13 Financial registration complete. [email or web address] 16:15 [facility] [place] Payment Agreement was scanned into [employer] and attached to record. ks 21:33 T-Sheet-- Draft Copy was scanned into [employer] and attached to record. klr 07/10 13:23 ED course: dr mancia faxed formal report of ct abd/p for fu mlg. ml Administered Medications: 07/09 14:41 Drug: NS 0.9% 1000 ml [sodium chloride 0.9 % injection syringe] Route: IV; Rate: 100 pml mL/hr; Site: left antecubital; 14:42 Drug: Ondansetron 4 mg [ondansetron HCl 2 mg/mL intravenous solution (2 mL)] Route: pml IVP; Site: left antecubital; 14:42 Drug: ketorolac 30 mg [ketorolac 30 mg/mL (1 mL) injection solution (1 mL)] Route: IVP; pml Site: left antecubital; Signatures: Dispatcher MedHoMoni EDMS Benito Talamantes MD MD ml Elsner, Karl, PATTERN DEVELOPER PATTERN DEVELOPER Yanique Washington RN RN rs3 Alyssa Yan RN RN pml Crane, Kelsi, RN RN kc3 Izzy Khan, Reg Reg ks16 Krystin Berry The chart was reviewed and I authenticate all verbal orders and agree with the evaluation and treatment provided.Attachments: 16:15 [facility] [place] Payment Agreement [email or web address] 21:33 T-Sheet-- Draft Copy klr [facility]
--- NOTE | 2016-07-17 12:05 | EDDOCDS ---
Physician Documentation [facility] Name: Robel Padron Age: 75 yrs Sex: Male : 1940 Arrival Date: 07/09/2016 Time: 13:11 Bed 12 Private MD: Dl Mancia M Disposition: 07/09/16 15:55 Discharged to Home/Self Care. Impression: Abdominal and pelvic pain. - Condition is Stable. - Discharge Instructions: Abdominal Pain, Adult. - Prescriptions for [place] 5- 325 mg Oral Tablet - take 1 tablet by ORAL route every 6 hours As needed MDD: 4 tabs; 20 tablet. - Medication Reconciliation, Local Pharmacy Hours form. - Follow up: Dl Mancia; When: 4 - 5 days; Reason: Recheck today's complaints, Continuance of care. - Problem is an ongoing problem. - Symptoms are unchanged. Historical: - Allergies: PENICILLINS (Unknown); - Home Meds: 1. verapamil 240 mg Oral TbER 1 tab once daily 2. lisinopril 10 mg Oral tab 1 tab once daily - PMHx: BPH; Chronic Back pain; Hypertension; Kidney stones; - PSHx: Skin Cancer removal; Hernia repair; - Social history: Smoking status: Patient states former smoker of tobacco. No barriers to communication noted, The patient speaks fluent Serbian. - Family history: Not pertinent. - : The pt / caregiver states he / she is not on anticoagulants. Home medication list is obtained from the patient. - Exposure Risk Screening:: None identified. Vital Signs: 07/09 13:12 BP 174 / 79; Pulse 65; Resp 16; Temp 97.0(O); Pulse Ox 99% on R/A; Weight 89.81 kg / elp 198 lbs (R); Height 6 ft. 1 in. (185.42 cm) (R); 16:05 BP 179 / 83; Pulse 62; Resp 18; Temp 97(O); Pulse Ox 97% on R/A; kc3 13:12 Body Mass Index 26.12 (89.81 kg, 185.42 cm) elp MDM: 14:15 NS 0.9% 1000 ml IV at 100 mL/hr continuous ordered. ke 14:15 Ondansetron 4 mg IVP once ordered. ke 14:15 ketorolac 30 mg IVP once ordered. ke 14:15 IV Saline Lock ordered. ke 14:15 Undress patient appropriately for examination ordered. ke 14:16 NOTHING BY MOUTH+DIET ordered. EDMS 14:16 Amylase Ordered. EDMS 14:16 Basic Metabolic Profile Ordered. EDMS 14:16 CBC with Diff Ordered. EDMS 14:16 Lipase Ordered. EDMS 14:16 Liver Profile Ordered. EDMS 14:16 Prothrombin Time Profile\E\INR Ordered. EDMS 14:16 Urinalysis Ordered. EDMS 14:16 CT ABD & PELVIS: No Contrast Ordered. EDMS 15:51 Basic Metabolic Profile Reviewed. ke 15:51 CBC with Diff Reviewed. ke 15:51 Urinalysis Reviewed. ke 15:51 Amylase Reviewed. ke 15:51 Lipase Reviewed. ke 15:51 Liver Profile Reviewed. ke 15:51 Prothrombin Time Profile\E\INR Reviewed. ke 16:13 Financial registration complete. [email or web address] 16:15 [facility] Payment Agreement was scanned into [employer] and attached to record. ks 21:33 T-Sheet-- Draft Copy was scanned into [employer] and attached to record. klr 07/10 13:23 ED course: dr mancia faxed formal report of ct abd/p for fu mlg. ml Administered Medications: 07/09 14:41 Drug: NS 0.9% 1000 ml [sodium chloride 0.9 % injection syringe] Route: IV; Rate: 100 pml mL/hr; Site: left antecubital; 14:42 Drug: Ondansetron 4 mg [ondansetron HCl 2 mg/mL intravenous solution (2 mL)] Route: pml IVP; Site: left antecubital; 14:42 Drug: ketorolac 30 mg [ketorolac 30 mg/mL (1 mL) injection solution (1 mL)] Route: IVP; pml Site: left antecubital; Signatures: Dispatcher MedHoAlaMarka EDMS Benito Talamantes MD MD ml Elsner, Karl, DRY CELL AND BATTERY ASSEMBLER DRY CELL AND BATTERY ASSEMBLER Yanique Washington RN RN rs3 Alyssa Yan RN RN pml Crane, Kelsi, RN RN kc3 Izzy Khan, Reg Reg ks16 Krystin Berry The chart was reviewed and I authenticate all verbal orders and agree with the evaluation and treatment provided.Attachments: 16:15 [facility] Payment Agreement [email or web address] 21:33 T-Sheet-- Draft Copy klr Chart Complete MTDD
--- NOTE | 2016-07-17 12:05 | EDDOCDS ---
Nurse's Notes [facility] Name: Robel Padron Age: 75 yrs Sex: Male : 1940 Arrival Date: 07/09/2016 Time: 13:11 Bed 12 Private MD: Dl Mancia M Diagnosis: Abdominal and pelvic pain Presentation: 07/09 13:16 Presenting complaint: Patient states: Right inguinal pain since last nigh. relief with rs3 sitting and lying. worse with walking. Adult Sepsis Screening: The patient does not have new or worsening altered mentation. Patient's respiratory rate is less than 22. Systolic blood pressure is greater than 100. Patient has a qSOFA score of 0- Negative Sepsis Screen. Suicide/Homicide risk assessment- the patient denies having any suicidal and/or homicidal ideations and does not present with any other emotional, behavioral or mental health complaints. Status: Patient is not a radiology equipment servicer or dependent. Transition of care: patient was not received from another setting of care. 13:16 Acuity: RABIA Level 3 rs3 13:16 Method Of Arrival: Walkin/Carried/Asstd rs3 Triage Assessment: 13:18 General: Appears in no apparent distress. Pain: Location: right femoral area. GI: rs3 Reports lower abdominal pain. Historical: - Allergies: PENICILLINS (Unknown); - Home Meds: 1. verapamil 240 mg Oral TbER 1 tab once daily 2. lisinopril 10 mg Oral tab 1 tab once daily - PMHx: BPH; Chronic Back pain; Hypertension; Kidney stones; - PSHx: Skin Cancer removal; Hernia repair; - Social history: Smoking status: Patient states former smoker of tobacco. No barriers to communication noted, The patient speaks fluent French. - Family history: Not pertinent. - : The pt / caregiver states he / she is not on anticoagulants. Home medication list is obtained from the patient. - Exposure Risk Screening:: None identified. Screenin:35 Screening information is obtained from the patient. Fall risk: No risks identified. pml Assistance ADL's: requires no assistance with activities of daily living. Abuse/DV Screen: The patient / caregiver reports he/she is: not in a situation that causes fear, pain or injury. Nutritional screening: No deficits noted. Advance Directives: Currently, there is no health care proxy. home support is adequate. Assessment: 14:35 General: Appears in no apparent distress, Behavior is appropriate for age, cooperative. pml Pain: Location: right lower quadrant Pain currently is 8 out of 10 on a pain scale. Neurological: Level of Consciousness is awake, alert, Oriented to person, place, time. Cardiovascular: Capillary refill < 3 seconds. Respiratory: Airway is patent Respiratory effort is even, unlabored. GI: Abdomen is non- distended Bowel sounds present X 4 quads. Abd is soft X 4 quads Reports lower abdominal pain, Denies nausea, vomiting. : Denies burning with urination, inability to void. Derm: Skin is pink, warm & dry. 16:04 General: Appears in no apparent distress, comfortable, Behavior is appropriate for age, kc3 cooperative. Neurological: Level of Consciousness is awake, alert, obeys commands, Oriented to person, place, time. Respiratory: Respiratory effort is even, unlabored. Derm: Skin is pink, warm & dry. Vital Signs: 13:12 BP 174 / 79; Pulse 65; Resp 16; Temp 97.0(O); Pulse Ox 99% on R/A; Weight 89.81 kg (R); elp Height 6 ft. 1 in. (185.42 cm) (R); 16:05 BP 179 / 83; Pulse 62; Resp 18; Temp 97(O); Pulse Ox 97% on R/A; kc3 13:12 Body Mass Index 26.12 (89.81 kg, 185.42 cm) el Vitals: 13:12 Log In Time: July 09, 2016 at 13:10. el ED Course: 13:12 Patient visited by Edith Soto PCA. elp 13:12 Dl Mancia is Private Physician. elp 13:12 Patient moved to Waiting elp 13:13 Patient visited by Edith Soto PCA. elp 13:13 Patient moved to Pre RCE elp 13:17 Triage Initiated rs3 13:51 Alyssa Yan,REJI is Primary Nurse. jjr 13:51 Patient moved to 12 jjr 13:59 [facility] ke 13:59 Patient visited by Avinash Vo FNP. ke 13:59 Patient visited by Avinash Vo FNP. ke 14:35 The patient / caregiver is instructed regarding the plan of care and ED course. Patient pml has correct armband on for positive identification. Placed in gown. Bed in low position. Call light in reach. Side rails up X2. 14:36 Patient visited by Alyssa Yan RN. pml 14:36 Inserted peripheral IV: 18gauge IV in left antecubital area and blood collected. pml Patient tolerated the procedure well. 15:13 Patient visited by Avinash Vo FNP. ke 15:44 Patient visited by Avinash Vo FNP. ke 15:55 Dl Mancia is Referral Physician. ke 16:04 Discontinued IV lock intact, bleeding controlled, pressure dressing applied, No kc3 redness/swelling at site. No procedures done that require assistance. 16:15 [place] Payment Agreement was scanned into [employer] and attached to record. [id number] 21:33 T-Sheet-- Draft Copy was scanned into [employer] and attached to record. klr 07/10 11:53 CT ABD & PELVIS: No Contrast Returned. EDMS Administered Medications: 07/09 14:41 Drug: NS 0.9% 1000 ml [sodium chloride 0.9 % injection syringe] Route: IV; Rate: 100 pml mL/hr; Site: left antecubital; 14:42 Drug: Ondansetron 4 mg [ondansetron HCl 2 mg/mL intravenous solution (2 mL)] Route: pml IVP; Site: left antecubital; 14:42 Drug: ketorolac 30 mg [ketorolac 30 mg/mL (1 mL) injection solution (1 mL)] Route: IVP; pml Site: left antecubital; Order Results: Lab Order: Amylase; SPEC'M 07/09/16 15:05 Test: AMYLASE; Value: 94; Range: 25-115; Units: U/L; Status: F Lab Order: Basic Metabolic Profile; SPEC'M 07/09/16 15:05 Test: GLUCOSE, FASTING; Value: 91; Range: 83-110; Units: MG/DL; Status: F Test: BLOOD UREA NITROGEN; Value: 19; Range: 7-18; Abnormal: Above high normal; Units: MG/DL; Status: F Test: CREATININE FOR GFR; Value: 0.87; Range: 0.70-1.30; Units: MG/DL; Status: F Test: GLOMERULAR FILTRATION RATE; Value: > 60.0; Range: >42; Status: F Test: SODIUM LEVEL; Value: 147; Range: 136-145; Abnormal: Above high normal; Units: MEQ/L; Status: F Test: POTASSIUM SERUM; Value: 4.2; Range: 3.5-5.1; Units: MEQ/L; Status: F Test: CHLORIDE LEVEL; Value: 111; Range: 98-107; Abnormal: Above high normal; Units: MEQ/L; Status: F Test: CARBON DIOXIDE LEVEL; Value: 29; Range: 21-32; Units: MEQ/L; Status: F Test: ANION GAP; Value: 7; Range: 8-16; Abnormal: Below low normal; Units: MEQ/L; Status: F Test: CALCIUM LEVEL; Value: 9.2; Range: 8.8-10.2; Units: MG/DL; Status: F Test Note: ; Units are mL/min/1.73 m2 Chronic Kidney Disease Staging per NKF: Stage I & II GFR >=60 Normal to Mildly Decreased Stage III GFR 30-59 Moderately Decreased Stage IV GFR 15-29 Severely Decreased Stage V GFR <15 Very Little GFR Left ESRD GFR <15 on CONTACT CENTRE SUPERVISOR Lab Order: CBC with Diff; SPEC'M 07/09/16 14:27 Test: WHITE BLOOD COUNT; Value: 8.5; Range: 4.0-10.0; Units: K/mm3; Status: F Test: RED BLOOD COUNT; Value: 4.99; Range: 4.30-6.10; Units: M/mm3; Status: F Test: HEMOGLOBIN; Value: 15.7; Range: 14.0-18.0; Units: g/dl; Status: F Test: HEMATOCRIT; Value: 45.9; Range: 42.0-52.0; Units: %; Status: F Test: MEAN CORPUSCULAR VOLUME; Value: 91.8; Range: 80.0-96.0; Units: fl; Status: F Test: MEAN CORPUSCULAR HEMOGLOBIN; Value: 31.4; Range: 27.0-33.0; Units: pg; Status: F Test: MEAN CORPUSCULAR HGB CONC; Value: 34.2; Range: 32.0-36.5; Units: g/dl; Status: F Test: RED CELL DISTRIBUTION WIDTH; Value: 13.6; Range: 11.5-14.5; Units: %; Status: F Test: PLATELET COUNT, AUTOMATED; Value: 230; Range: 150-450; Units: k/mm3; Status: F Test: NEUTROPHILS %; Value: 69.3; Range: 36.0-66.0; Abnormal: Above high normal; Units: %; Status: F Test: LYMPH %; Value: 16.7; Range: 24.0-44.0; Abnormal: Below low normal; Units: %; Status: F Test: MONO %; Value: 7.2; Range: 0.0-5.0; Abnormal: Above high normal; Units: %; Status: F Test: EOS %; Value: 3.6; Range: 0.0-3.0; Abnormal: Above high normal; Units: %; Status: F Test: BASO %; Value: 1.8; Range: 0.0-1.0; Abnormal: Above high normal; Units: %; Status: F Test: LARGE UNSTAINED CELL %; Value: 1.3; Range: 0.0-4.0; Units: %; Status: F Test: NEUTROPHILS #; Value: 5.9; Range: 1.8-7.7; Units: K/mm3; Status: F Test: LYMPH #; Value: 1.5; Range: 1.5-4.5; Units: K/mm3; Status: F Test: MONO #; Value: 0.6; Range: 0.0-0.8; Units: K/mm3; Status: F Test: EOS #; Value: 0.3; Range: 0.0-0.50; Units: K/mm3; Status: F Test: BASO #; Value: 0.2; Range: 0.0-0.2; Units: K/mm3; Status: F Test: LARGE UNSTAINED CELL #; Value: 0.1; Range: 0.0-0.4; Units: K/mm3; Status: F Lab Order: Lipase; SPEC'M 07/09/16 15:05 Test: LIPASE; Value: 127; Range: 73-393; Units: U/L; Status: F Lab Order: Liver Profile; SPEC'M 07/09/16 15:05 Test: AST/SGOT; Value: 21; Range: 15-37; Units: U/L; Status: F Test: ALT/SGPT; Value: 29; Range: 12-78; Units: U/L; Status: F Test: ALKALINE PHOSPHATASE; Value: 79; Range: 45-117; Units: U/L; Status: F Test: BILIRUBIN,TOTAL; Value: 0.5; Range: 0.2-1.0; Units: MG/DL; Status: F Test: BILIRUBIN,DIRECT; Value: 0.1; Range: 0.0-0.2; Units: MG/DL; Status: F Test: TOTAL PROTEIN; Value: 6.4; Range: 6.4-8.2; Units: GM/DL; Status: F Test: ALBUMIN; Value: 4.0; Range: 3.2-5.2; Units: GM/DL; Status: F Test: ALBUMIN/GLOBULIN RATIO; Value: 1.67; Range: 1.00-1.93; Status: F Lab Order: Prothrombin Time Profile\E\INR; SPEC'M 07/09/16 14:27 Test: PROTHROMBIN TIME; Value: 13.4; Range: 12.3-14.5; Units: SECONDS; Status: F Test: INR; Value: 1.01; Status: F Test Note: ; THERAPUTIC HUMAN INR VALUES INDICATIONS NORMAL RANGES PROPHYLAXIS/TREATMENT OF: VENOUS THROMBOSIS 2.0-3.0 PULMONARY EMBOLISM 2.0-3.0 PREVENTION OF SYSTEMIC EMBOLISM FROM: TISSUE HEART VALVES 2.0-3.0 ACUTE MYOCARDIAL INFARCTION 2.0-3.0 VALVULAR HEART DISEASE 2.0-3.0 ATRIAL FIBRILLATION 2.0-3.0 MECHANICAL VALVES(HIGH RISK) 2.5-3.5 RECURRENT MYOCARDIAL INFARCTION 2.5-3.5 Lab Order: Urinalysis; SPEC'M 07/09/16 14:23 Test: APPEARANCE, URINE; Value: CLEAR; Range: CLEAR; Status: F Test: COLOR, URINE; Value: YELLOW; Range: YELLOW; Status: F Test: PH,URINE; Value: 5.0; Range: 5.0-9.0; Units: UNITS; Status: F Test: SPECIFIC GRAVITY URINE AUTO; Value: 1.020; Range: 1.002-1.035; Status: F Test: PROTEIN, URINE AUTO; Value: 1+; Range: NEGATIVE; Abnormal: Above high normal; Units: mg/dL; Status: F Test: GLUCOSE, URINE (UA) AUTO; Value: NEGATIVE; Range: NEGATIVE; Units: mg/dL; Status: F Test: KETONE, URINE AUTO; Value: TRACE; Range: NEGATIVE; Abnormal: Above high normal; Units: mg/dL; Status: F Test: UROBILINOGEN, URINE AUTO; Value: 0.2; Range: 0.0-2.0; Units: mg/dL; Status: F Test: BILIRUBIN, URINE AUTO; Value: NEGATIVE; Range: NEGATIVE; Status: F Test: NITRITE, URINE AUTO; Value: NEGATIVE; Range: NEGATIVE; Status: F Test: LEUKOCYTE ESTERASE, URINE AUTO; Value: NEGATIVE; Range: NEGATIVE; Status: F Test: BLOOD, URINE BLOOD; Value: NEGATIVE; Range: NEGATIVE; Status: F Test: WBC, URINE AUTO; Value: 2; Range: 0-3; Units: /HPF; Status: F Test: RBC, URINE AUTO; Value: 1; Range: 0-3; Units: /HPF; Status: F Test: BACTERIA, URINE AUTO; Value: NEGATIVE; Range: NEGATIVE; Status: F Test: SQUAMOUS EPITHELIAL CELL UR AU; Value: 0; Range: 0-6; Units: /HPF; Status: F Test: MUCUS, URINE; Value: SMALL; Range: NEGATIVE; Status: F Test: HYALINE CAST, URINE AUTO; Value: 0; Range: 0-1; Units: /LPF; Status: F Radiology Order: CT ABD & PELVIS: No Contrast Test: CT ABD & PELVIS: No Contrast REASON FOR EXAMINATION: r supra pubic pain; CT of the abdomen pelvis without IV and oral contrast:; ; Comparison is 06/01/2014.; ; On the comparison study there was a 6 mm nodule in the posterior sulcus of the; right lung. On the study today this nodule is again identified and is unchanged; in size shape or appearance, therefore likely benign.; ; On the comparison study there was a 7 mm nodule in the left lower lobe. On the; study today this nodule appears to be a vascular artifact and is no longer; visualized.; ; The lower lung green are otherwise unremarkable.; ; There are multiple cysts in the left hepatic lobe as previously. The largest; nodule today measures 8.4 cm (8.7 cm previously. The hepatic parenchyma is; otherwise unremarkable.; ; There are multiple gallbladder calculi. This is similar to the prior study.; There is no evidence of acute cholecystitis or biliary duct dilatation, as; previously.; ; The pancreas and spleen are normal size and unremarkable.; ; There are two large cysts in the left kidney the largest is at the lower pole and; measures 10.6 cm (9.8 cm previously).; ; The left kidney there is a tiny 3 ml calcification in the upper pole. On the; prior study there was a 3 mm calcification in the lower pole. The right kidney; is otherwise unremarkable.; ; The abdominal aorta is unremarkable except for occasional calcified atheroma.; ; There is no bowel distension. No inflammatory changes in the mesentery. No; ascites.; ; Pelvis:; ; The appendix is unremarkable. The prostate is markedly enlarged, similar to the; comparison study. The prostate three measures 8.4 cm transversely (9.0 cm; previously.; ; The bladder is nondistended and cannot be evaluated.; ; There is no pelvic adenopathy.; ; There are occasional diverticula in the sigmoid colon. There is no CT evidence; of diverticulitis.; ; There are benign bone islands in this pubic symphysis bilaterally, unchanged.; ; Impression:; ; The prostate is markedly enlarged and has decreased in size from the prior; study.; ; There are hepatic and left renal cysts. There is cholelithiasis without acute; cholecystitis.; ; Small nonobstructive right renal calculus.; ; Lung nodules as described.; ; ; Signed by; Jorge L Saldaña MD 07/09/2016 03:05 P; Outcome: 15:55 Discharge ordered by Provider. ke 16:04 Discharge Assessment: Patient awake, alert and oriented x 3. No cognitive and/or kc3 functional deficits noted. Patient verbalized understanding of disposition instructions. 16:05 Discharge Assessment: patient administered narcotics - no. The following High Risk kc3 Discharge criteria are identified: None. Discharged to home ambulatory. Condition: stable. Discharge instructions given to patient, Instructed on discharge instructions, follow up and referral plans. medication usage, Demonstrated understanding of instructions, medications, Pt was receptive of discharge instructions/ teaching. Prescriptions given X 1. CT Study completed. Property :Personal belongings accompany Pt. 16:07 Patient left the ED. kc3 Addendum: 07/17/2016 12:00 Narrative: Patient called back after receiving certified letter - relayed that he has kcs cysts on his kidneys and liver - that he is scheduled for a colonoscopy and has f/'d up with his doctor. Signatures: Dispatcher [employer] EDChari Shore, RN RN kcs Avinash Vo, COOKIE MIXER HELPER COOKIE MIXER HELPER Tati Connelly RN RN Yanique Wright RN RN rs3 Alyssa YanRN RN pml Edith Soto, HORSE SHOW JUDGE HORSE SHOW JUDGE elp Daphnie Patel RN RN kc3 Izzy Khan, Reg Reg [email or web address] Krystin Berry Corrections: (The following items were deleted from the chart) 07/09 13:16 13:12 BP 189 / 91; Pulse 65bpm; Resp 16bpm; Pulse Ox 99% RA; Temp 97.0F Oral; 89.81 kg elp Reported; Height 6 ft. 1 in. Reported; BMI: 26.1; elp 13:19 13:16 Presenting complaint: Patient states: Right inguinal pain since last night rs3 rs3 Chart Complete MTDD
== END 2016-07-09 16:07 | disposition home or self-care (01) ==
LOC: M ED 13:11
DX: R10.9 Unspecified abdominal pain (principal); I10 Essential (primary) hypertension; M54.9 Dorsalgia, unspecified; N40.0 Benign prostatic hyperplasia without lower urinary tract symptoms; Z87.442 Personal history of urinary calculi; Z87.891 Personal history of nicotine dependence; Z79.899 Other long term (current) drug therapy; Z88.0 Allergy status to penicillin
CPT/HCPCS: 36415; 74176; 80048; 80076; 81001; 82150; 83690; 85025; 85610; 96374; 96375; 99284; J1885; J2405

== ENCOUNTER 2016-12-05 02:24 | Inpatient (IN) | payer MEDICARE ==
[~2016-12-05] VITALS: Ht 185.4 cm; Wt 86.9 kg
[2016-12-05] MEDS ORDERED: LISI10TA4 (03:01)
[2016-12-05] MEDS ORDERED: VERA1TAB11 (03:01)
[2016-12-05 03:55] LABS: MICROSCOPIC INDICATED? MAN YES (NO)
[2016-12-05 03:56] LABS: BASO # 0.1 K/mm3 (0.0-0.2); BASO % 1.1 % (0.0-1.0); EOS # 0.4 K/mm3 (0.0-0.50); EOS % 4.4 % (0.0-3.0); LARGE UNSTAINED CELL # 0.1 K/mm3 (0.0-0.4); LARGE UNSTAINED CELL % 1.4 % (0.0-4.0); LYMPH # 1.3 K/mm3 (1.5-4.5); LYMPH % 15.2 % (24.0-44.0); MEAN CORPUSCULAR HEMOGLOBIN 32.3 pg (27.0-33.0); MEAN CORPUSCULAR HGB CONC 33.6 g/dl (32.0-36.5); MEAN CORPUSCULAR VOLUME 96.2 fl (80.0-96.0); MONO # 0.5 K/mm3 (0.0-0.8); MONO % 6.2 % (0.0-5.0); NEUTROPHILS # 5.9 K/mm3 (1.8-7.7); NEUTROPHILS % 71.8 % (36.0-66.0); PLATELET COUNT, AUTOMATED 221 k/mm3 (150-450); RED CELL DISTRIBUTION WIDTH 12.8 % (11.5-14.5); WHITE BLOOD COUNT 8.3 K/mm3 (4.0-10.0)
[2016-12-05 03:57] LABS: RBC, URINE TNTC /hpf (0-3)
[2016-12-05 03:59] LABS: BACTERIA, URINE NONE SEEN; HYALINE CAST, URINE NONE SEEN /lpf (0-1); MICROSCOPIC EXAM UNSPUN; SQUAMOUS EPITHELIAL CELL URINE NONE SEEN /hpf (SMALL AMT)
[2016-12-05 04:11] LABS: ANION GAP 3 MEQ/L (8-16); BLOOD UREA NITROGEN 23 MG/DL (7-18); CALCIUM LEVEL 9.3 MG/DL (8.8-10.2); CARBON DIOXIDE LEVEL 32 MEQ/L (21-32); CHLORIDE LEVEL 110 MEQ/L (98-107); CREATININE FOR GFR 0.87 MG/DL (0.70-1.30); GLOMERULAR FILTRATION RATE > 60.0 (>42); GLUCOSE, FASTING 108 MG/DL (83-110); POTASSIUM SERUM 4.3 MEQ/L (3.5-5.1); SODIUM LEVEL 145 MEQ/L (136-145)
[2016-12-05 04:13] LABS: INR 1.05
[2016-12-05] MEDS ORDERED: ISOVUE-370 76% 100ML VIAL (Q9967) As Ordered ONE (04:20)
--- NOTE | 2016-12-05 06:47 | REPUSA ---
CLINICAL HISTORY: Abdominal pain. TECHNIQUE: Multiple axial, sagittal and coronal CT images were obtained through the abdomen and pelvi s after administration of intravenous contrast material. COMMENTS: Comparison is made to the prior exam performed on 07/09/2016. Scattered simple hepatic cysts with the largest measuring 6.7 cm and the left hepatic lobe. The liver is of uniform attenuation without mass or defect. There is no intra or extrahepatic biliary ductal dilatation. The spleen is normal. The gallbladder contains multiple gallstones. The pancreas is of normal contour and attenuation characteristics. There is 1.3 cm left adrenal benign chronic nod ule. Both kidneys demonstrate prompt and equal nephrograms. Left renal simple cysts the largest measuring 9.9 cm. The kidneys are normal in size, shape and configuration. There is no evidence of renal or ure teral mass. No renal or ureteral calculi are identified. There is no hydroureter or hydronephrosis. No evidence for appendicitis. There is no bowel wall thickening. No evidence for small or large johnson l obstruction. There is no evidence of abdominal ascites or lymphadenopathy. There is moderate prostatomegaly. Thickened bladder wall. 8.4x6.2 cm heterogeneous clot in the lumen of the bladder. There is no pelvic ascites or lymphadenopathy. Moderate large bowel fecal stasis. Images of the lung bases show no evidence of pleural or parenchymal mass. There are no pleural effusi ons. The bony structures are free of lytic or blastic lesions. Multilevel degenerative changes are seen in volving the thoracolumbar spine. Scattered calcifications are seen involving the aorta and major bran ches compatible with atherosclerosis. IMPRESSION: Distended bladder. This was not present on prior exam. Urinary catheter balloon is seen in the bladder. This was not present on prior exam. Another catheter balloon/fluid is noted surrounding the mid aspect of the penile urethra. Please eval uate clinically. This was not present on prior exam. Moderate prostatomegaly. This is unchanged. Gas densities in the bladder from recent intervention/instrumentation. This was not present on prior exam. Heterogeneous hyperdense clot in the lumen of the bladder. This was not present on prior exam. Gallstones. This is unchanged. Fat-containing right inguinal hernia without incarceration. This is unchanged. Scattered simple hepatic cysts. This is unchanged. Thank you for your kind referral of this patient.
[2016-12-05] MEDS ORDERED: MIRA3350 PO (10:02)
[2016-12-05] MEDS ORDERED: VERA1TAB11 PO (10:02)
[2016-12-05] MEDS ORDERED: LISI-542 PO (10:02)
[2016-12-05] MEDS ORDERED: MIRALAX *UNIT DOSE* 17GM PACKET PO PRN (10:15)
[2016-12-05 11:01] LABS: MEAN CORPUSCULAR HEMOGLOBIN 32.9 pg (27.0-33.0); MEAN CORPUSCULAR HGB CONC 34.5 g/dl (32.0-36.5); MEAN CORPUSCULAR VOLUME 95.5 fl (80.0-96.0); RED CELL DISTRIBUTION WIDTH 12.7 % (11.5-14.5); WHITE BLOOD COUNT 6.7 K/mm3 (4.0-10.0)
[2016-12-05] MEDS ORDERED: HYDR-3713 PO (11:32)
--- NOTE | 2016-12-05 13:26 | HPEPDOC ---
General Date of Admission Dec 05, 2016 at 10:13 Chief Complaint The patient is a 76-year-old male Presented to the ER with complaints of blood in his urine. History of Present Illness Patient is a 76 year old male with a PMHx of HTN, BPH s/p TURP, Hx of Hematuria and Chronic back pain who presented to the ER with complaints of blood in his urine. Patient has noted that since his TURP procedure in 11/[address] [place] [address] Juventino Valenzuela, he has been having on and off episodes of blood in his urine. He has noted 3-4 episodes since the procedure causing him to have hematuria. He notes that since yesterday he has been having blood in his urine. He notes that when he went to the bathroom this morning he was passing clots when he urinated. After he passed a large clot, he noticed continuous bleeding. He denies any light headedness, dizziness or syncopal episodes at home. He denies shortness of breath, chest pain or palpitations. He does note some discomfort with urination. He denies abdominal pain or diarrhea. He does report some constipation. Home Medications Scheduled Lisinopril (Lisinopril) 5 Mg Tab, 5 MG PO QHS, (Reported) Verapamil HCl (Verapamil HCl ER) 180 Mg Tab, 180 MG PO QHS, (Reported) Scheduled PRN Acetaminophen/Hydrocodone (Hydrocodone/Acetaminophen 5-325 mg) 1 Tab Tab, 1 TAB PO Q6H PRN for PAIN, (Reported) Polyethylene Glycol (Miralax) 1 Pow Pow, 17 GM PO DAILY PRN for CONSTIPATION, ( Reported) dilute in 8 ounces of water or juice Allergies Coded Allergies: Penicillins (Verified Allergy, Unknown, 12/05/16) Past Medical History Medical History HTN, BPH s/p TURP, Hx of Hematuria and Chronic back pain Surgical History 3 hernia operations Family History - Non-contributory Social History - Denies the use of alcohol or illicit drugs; Social alcohol use - Denies recent travel or sick contacts - Lives alone Review of Symptoms Other systems Constitutional: Reports weight loss of 80 lbs over 2 years, no change in appetite, or recent trauma Eyes: No visual changes or eye pain Ears, Nose, Throat: Denies nose bleeds, or difficulty swallowing Cardiovascular: Denies chest pain, sweating, or orthopnea Respiratory: Denies cough, wheezing, or shortness of breath GI: Suleiman nausea, vomiting, abdominal pain, diarrhea or constipation : Discomfort with urination and blood in urine Musculoskeletal: Denies joint pain or swelling Neuro / Psych: Denies muscle weakness or sensory loss Skin: No skin rashes noted All other review of systems negative; otherwise stated in history of present illness Screening: - Colonoscopy done 4 years prior with polyps noted Vital Signs - Vitals: BP 150/66, HR 95, RR 16, Sat 97%RA, Temp 96.1F - General: Lying in bed, No acute distress, Speaking in full sentences, AAOx3 - HEENT: NC, AT, PERRLA, EOMI - CVS: RRR, +S1S2, - Murmurs / rubs / gallops - Lungs: Fair air entry bilaterally, Clear to auscultation, No wheezing / rales / rhonchi - Abdomen: Soft, Non-distended, Non-tender, + Bowel sounds x 4 - Extremities: + PPx4, No lower extremity edema, No calf tenderness - Neuro: No focal motor or sensory deficit - Skin: No visible rashes Laboratory Data Labs 24H Laboratory Tests 2 12/05/16 03:28: White Blood Count 8.3, Red Blood Count 4.63, Hemoglobin 15.0, Hematocrit 44.5, Mean Corpuscular Volume 96.2H, Mean Corpuscular Hemoglobin 32.3, Mean Corpuscular Hemoglobin Concent 33.6, Red Cell Distribution Width 12.8, Platelet Count 221, Neutrophils (%) (Auto) 71.8H, Lymphocytes (%) (Auto) 15.2L, Monocytes (%) (Auto) 6.2H, Eosinophils (%) (Auto) 4.4H, Basophils (%) (Auto) 1.1H, Neutrophils # (Auto) 5.9, Lymphocytes # (Auto) 1.3L, Monocytes # (Auto) 0.5, Eosinophils # (Auto) 0.4, Basophils # (Auto) 0.1, Large Unclassified Cells % 1.4, Large Unclassified Cells # 0.1, Prothrombin Time 13.8, Prothromb Time International Ratio 1.05, Activated Partial Thromboplast Time 33.0, Bedside Urine Color (LAB) REDH, Bedside Urine Appearance (LAB) TURBIDH, Bedside Urine pH (LAB) OBSCUREDH, Bedside Urine Specific [place] (LAB 1.030, Bedside Urine Protein (LAB) OBSCUREDH, Bedside Urine Glucose (UA) OBSCUREDH, Bedside Urine Ketones (LAB) OBSCUREDH, Bedside Urine Blood OBSCUREDH, Bedside Urine Nitrite ( LAB) OBSCUREDH, Bedside Urine Bilirubin (LAB) OBSCUREDH, Bedside Urine Urobilinogen (LAB) OBSCUREDH, Bedside Urine Leukocyte Esterase (L OBSCUREDH, Urine WBC 7-10H, Urine RBC TNTCH, Urine Squamous Epithelial Cells NONE SEEN, Urine Bacteria NONE SEEN, Urine Hyaline Casts NONE SEEN, Urine Sediment Examination UNSPUN, Anion Gap 3L, Glomerular Filtration Rate > 60.0, Blood Urea Nitrogen 23H, Creatinine 0.87, Sodium Level 145, Potassium Level 4.3, Chloride Level 110H, Carbon Dioxide Level 32, Calcium Level 9.3 CBC/BMP Laboratory Tests 12/05/16 03:28 Red Blood Count 4.63, Mean Corpuscular Volume 96.2 H, Mean Corpuscular Hemoglobin 32.3, Mean Corpuscular Hemoglobin Concent 33.6, Red Cell Distribution Width 12.8, Neutrophils (%) (Auto) 71.8 H, Lymphocytes (%) (Auto) 15.2 L, Monocytes (%) (Auto) 6.2 H, Eosinophils (%) (Auto) 4.4 H, Basophils (%) (Auto) 1.1 H, Neutrophils # (Auto) 5.9, Lymphocytes # (Auto) 1.3 L, Monocytes # (Auto) 0.5, Eosinophils # (Auto) 0.4, Basophils # (Auto) 0.1, Calcium Level 9.3 12/05/16 10:46 Red Blood Count 4.18 L, Mean Corpuscular Volume 95.5, Mean Corpuscular Hemoglobin 32.9, Mean Corpuscular Hemoglobin Concent 34.5, Red Cell Distribution Width 12.7 Microbiology Microbiology 12/05/16 Urine Culture, Received Pending Plan / VTE VTE Prophylaxis Ordered?: Yes Plan / Urinary Catheter Reason for insertion/continuin: Acute obstruct/retention Plan Plan Hematuria possibly 2/2 prostate related bleed, possibly 2/2 intrabladder mass - Presented with blood in his urine for one day, noted to have passed clots - Has history of this occurring 3-4x in the past - Physical is unrevealing - Labs reveal stable Hg at 15 without signs of acute kidney injury or dehydration - UA with extensive RBCs - s/p Triple port [place] set to irrigation - c/w irrigation at this time - c/w H&H checks [id number] - Discussed blood transfusions with patient (risks and benefits) and patient has consented - Dr. Ace on consult; will see the patient and evaluate for possible cystoscopy HTN - c/w Lisinopril and Verapamil with holding parameters BPH s/p TURP - Not on medications currently Chronic back pain - c/w Tylenol PRN DVT prophylaxis - Will start SCDs (re: Hematuria) OPAL BURCH MD Dec 05, 2016 13:26
[2016-12-05 13:30] VITALS: BP 160/84
[2016-12-05] MEDS: ACETAMINOPHEN TAB 650MG DOSE (2X325MG) PO PRN (15:06)
[2016-12-05] MEDS ORDERED: amLODIPine 5 MG TAB PO ONE (15:15)
[2016-12-05] MEDS: D5W/0.45% SODIUM CHLORIDE 1,000 ML IV SCH (16:26)
[2016-12-05 18:00] VITALS: BP 149/76
[2016-12-05] MEDS: LISINOPRIL 5 MG TAB PO SCH (20:12)
[2016-12-05] MEDS ORDERED: VERAPAMIL 180 MG SR TAB PO SCH (21:00)
[2016-12-05 22:00] VITALS: BP 158/76
[2016-12-05] MEDS: LevoFLOXacin IV 500 MG in APPROPRIATE DILUENT 1 EA IV SCH (23:16)
[2016-12-06 02:00] VITALS: BP 131/64
[2016-12-06] MEDS: ACETAMINOPHEN TAB 650MG DOSE (2X325MG) PO PRN (04:45)
[2016-12-06 06:00] VITALS: BP 127/62
[2016-12-06 06:03] LABS: MEAN CORPUSCULAR HEMOGLOBIN 32.2 pg (27.0-33.0); MEAN CORPUSCULAR VOLUME 94.9 fl (80.0-96.0); WHITE BLOOD COUNT 7.4 K/mm3 (4.0-10.0)
[2016-12-06 06:13] LABS: ANION GAP 5 MEQ/L (8-16); BLOOD UREA NITROGEN 16 MG/DL (7-18); CALCIUM LEVEL 8.9 MG/DL (8.8-10.2); CARBON DIOXIDE LEVEL 29 MEQ/L (21-32); CHLORIDE LEVEL 109 MEQ/L (98-107); CREATININE FOR GFR 0.78 MG/DL (0.70-1.30); GLOMERULAR FILTRATION RATE > 60.0 (>42); GLUCOSE, FASTING 116 MG/DL (83-110); MAGNESIUM LEVEL 2.3 MG/DL (1.8-2.4); POTASSIUM SERUM 4.2 MEQ/L (3.5-5.1); SODIUM LEVEL 143 MEQ/L (136-145)
--- NOTE | 2016-12-06 07:50 | ECGEPIP ---
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
[2016-12-06] MEDS: D5W/0.45% SODIUM CHLORIDE 1,000 ML IV SCH (08:27)
[2016-12-06 10:00] VITALS: BP 145/70
--- NOTE | 2016-12-06 12:34 | IPNPDOC ---
Text Note Date of Service The patient was seen on 12/06/16. NOTE Subjective: Patient is a 76 year old male with a PMHx of HTN, BPH s/p TURP, Hx of Hematuria and Chronic back pain who presented to the ER with complaints of blood in his urine. Has had multiple episodes like this in the past. Was admitted to hospitalist service and discussed with Urology for cystoscopy and possible intervention on prostate. Patient was seen and examined at the bedside. Currently he denies any problems. He notes that he does not have any SOB, chest pain or palpitations. Has had continuous hematuria with the irrigation system. Objective: Vitals (See below) General: Lying in bed, no acute distress, comfortable, AAOx3 HEENT: NC, AT CVS: Regular rhythm, Bradycardic, +S1S2 Lungs: Fair air entry b/l, -w/r/r Abdomen: Soft, ND, NT, +BSx4 Extremities: +PPx4, - Edema, - Calf tenderness Assessment and plan: 1. Hematuria - possibly 2/2 prostate related bleed, less likely 2/2 intra- bladder mass - Presented with blood in his urine for one day, noted to have passed clots; has occurred 3-4x in the past - Physical is unrevealing - Hemoglobin remains stable - UA with extensive RBCs - s/p Triple port Dumont set to irrigation; c/w irrigation - c/w H&H checks [id number] - Discussed blood transfusions with patient (risks and benefits) and patient has consented - Dr. Ace on consult and case discussed; will go to OR for intervention this afternoon 2. Bradycardia - possibly 2/2 medications - Has been on Verapamil as an outpatient - No symptoms; no SOB, Chest pain or palpitations - Will stop verapamil 3. HTN - s/p Verapamil - c/w Lisinopril with holding parameters 4. BPH s/p TURP - Not on medications currently 5. Chronic back pain - c/w Tylenol PRN 6. DVT prophylaxis - c/w SCDs (re: Hematuria) VS,Fishbone, I+O VS, Fishbone, I+O Laboratory Tests 12/05/16 15:49 12/05/16 22:58 12/06/16 05:17 Red Blood Count 4.05 L, Mean Corpuscular Volume 94.9, Mean Corpuscular Hemoglobin 32.2, Mean Corpuscular Hemoglobin Concent 34.0, Red Cell Distribution Width 13.0, Calcium Level 8.9 Vital Signs Date Time Temp Pulse Resp B/P (MAP) Pulse Ox O2 Delivery O2 Flow Rate FiO2 12/06/16 10:00 97.8 58 18 145/70 (95) 99 Room Air I&O- Last 24 Hours up to 6 AM 12/06/16 06:00 Intake Total 6590 ml Output Total 9325 ml Balance -2735 ml OPAL BURCH MD Dec 06, 2016 12:34
[2016-12-06] MEDS ORDERED: GENTAMICIN 120 MG in D5W 50 ML IV ONE (13:00)
[2016-12-06 14:00] VITALS: BP 144/80
[2016-12-06] MEDS ORDERED: LevoFLOXacin(LEVAQUIN)500 MG/100 ML BAG (J1956) As Ordered ONE (21:56)
[2016-12-06] MEDS: LevoFLOXacin IV 500 MG in APPROPRIATE DILUENT 1 EA IV SCH (22:00)
[2016-12-06] MEDS ORDERED: MIDAZOLAM INJ 2 MG/2 ML VIAL (J2250) As Ordered ONE (22:08)
[2016-12-06] MEDS ORDERED: PROPOFOL 200 MG/20 ML VIAL As Ordered ONE (22:08)
[2016-12-06] MEDS ORDERED: fentaNYL 100 MCG/2 ML INJECTION (J3010) As Ordered ONE (22:08)
[2016-12-06] MEDS ORDERED: ONDANSETRON 4MG/2ML VIAL (J2405) As Ordered ONE (22:09)
[2016-12-06] MEDS ORDERED: dexameTHASONE 4 MG/ML 1ML VIAL (J1100) As Ordered ONE (22:09)
[2016-12-06] MEDS ORDERED: ePHEDrine SULFATE 25 MG/5 ML(5MG/ML) SYRINGE As Ordered ONE (22:48)
[2016-12-06] MEDS ORDERED: PHENYLephrine HCL 500 MCG/5 ML (100MCG/ML) SYRINGE (J2370) As Ordered ONE (22:48)
[2016-12-07] VITALS (10 sets, daily range): BP systolic 118–156; BP diastolic 62–81
[2016-12-07] MEDS ORDERED: ONDANSETRON 4MG/2ML VIAL (J2405) As Ordered ONE (00:06)
[2016-12-07] MEDS ORDERED: fentaNYL 100 MCG/2 ML INJECTION (J3010) IV PRN (01:15)
[2016-12-07] MEDS ORDERED: ONDANSETRON 4MG/2ML VIAL (J2405) IV PRN ×2 (01:15→02:30)
[2016-12-07] MEDS ORDERED: LR 1,000 ML IV SCH (01:15)
[2016-12-07] MEDS: LISINOPRIL 5 MG TAB PO SCH ×2 (02:22→20:14)
[2016-12-07] MEDS: ACETAMINOPHEN 650MG ER TAB (TYLENOL ARTHRITIS) PO PRN (03:02)
[2016-12-07] MEDS ORDERED: MORPHINE 4 MG/ML 1ML SYRINGE IV PRN (03:30)
[2016-12-07] MEDS: LevoFLOXacin 500 MG TABLET PO SCH (05:05)
[2016-12-07 05:57] LABS: MEAN CORPUSCULAR HEMOGLOBIN 32.3 pg (27.0-33.0); MEAN CORPUSCULAR HGB CONC 34.4 g/dl (32.0-36.5); MEAN CORPUSCULAR VOLUME 93.9 fl (80.0-96.0); WHITE BLOOD COUNT 9.5 K/mm3 (4.0-10.0)
[2016-12-07 06:17] LABS: ANION GAP 7 MEQ/L (8-16); BLOOD UREA NITROGEN 13 MG/DL (7-18); CALCIUM LEVEL 9.3 MG/DL (8.8-10.2); CARBON DIOXIDE LEVEL 28 MEQ/L (21-32); CHLORIDE LEVEL 108 MEQ/L (98-107); CREATININE FOR GFR 1.05 MG/DL (0.70-1.30); GLOMERULAR FILTRATION RATE > 60.0 (>42); GLUCOSE, FASTING 161 MG/DL (83-110); MAGNESIUM LEVEL 2.1 MG/DL (1.8-2.4); POTASSIUM SERUM 4.1 MEQ/L (3.5-5.1); SODIUM LEVEL 143 MEQ/L (136-145)
[2016-12-07] MEDS ORDERED: PANTOPRAZOLE 40MG INJ (PROTONIX) (C9113) IV SCH (09:00)
--- NOTE | 2016-12-07 12:13 | IPN ---
DATE: 12/07/2016 The patient was admitted with hematuria. He still has a 3-way Dumont. He is afebrile. Hematocrit is stable. Vital signs are stable. He is on sequentials for deep vein thrombosis (DVT) prophylaxis. Urology, of course, continues to follow. He has had a mildly elevated sugar and I am checking an A1c. I do not see any need to continue gastrointestinal (GI) prophylaxis with Protonix. He does not meet criteria for GI prophylaxis. Otherwise, he looks well. He is resting comfortably. His heart was regular rate and rhythm. His chest is clear to auscultation. Abdomen is unremarkable. Dumont present. Sequentials noted on lower extremities. IMPRESSIONS/PLAN: 1. Hematuria. Per urology. Everything at this time appears to be stable. 2. Elevated sugar. Checking A1c. 3. Observation status. The patient was changed to inpatient. 4. DVT prophylaxis as above.
--- NOTE | 2016-12-07 13:23 | RO ---
DATE OF PROCEDURE: 12/05/2016 PREOPERATIVE DIAGNOSIS: Gross hematuria. POSTOPERATIVE DIAGNOSIS: Gross hematuria plus severe prostatic enlargement with active bleeding. PROCEDURE: Cystoscopy, plus clot evaluation, plus fulguration of bleeders, plus transurethral ressection of prostate gland (bipolar TURP). FINDINGS: Severe prostatic enlargement more than 100 grams with active bleeding vessels. Multiple clots in the bladder. SURGEON: Dr. Ward Ace SECURITY RISK ANALYST: None. ANESTHESIA: General. COMPLICATIONS: None. ESTIMATED BLOOD LOSS: N/A. HISTORY OF PRESENT ILLNESS: 76-year-old male patient that had a history of gross hematuria. For this reason, he was admitted to the hospitalist service. Since he came to the emergency department at [facility] with severe urinary retention and gross hematuria, a Dumont catheter was placed with irrigation. A CT scan of the abdomen and pelvis showed that he had severe clots in the bladder. For this reason, he was consented to be taken to the OR for cystoscopy plus clot evacuation and fulguration of bleeders, possible transurethral resection of prostate (TURP). PROCEDURE DESCRIPTION: With patient under general anesthesia in supine modified low lithotomy position, after prepping and draping the area of concern which included the entire genitalia and abdomen, we introduced a #21-Greek cystoscope under videoscopic guidance with a 30 degree lens. The fossa navicularis, penile urethra, bulbar urethra and femoris urethra were totally normal. The prostatic urethra showed giant lateral lobes and pendulated left lateral wall lobe protruding into the bladder from 9 o'clock with severe varicosity veins and bleeding. There were some clots in the bladder, formed clots and old clots. For this reason, we grabbed the Ellik evacuator and took all the clots out. We then proceeded to actually take the cystoscope out and introduce a resectoscope. Under normal saline, bipolar resection, we identified both the ureteral orifices and then resected the entire left lateral lobe. It was about 100 grams of resection of the left lateral wall which actually stopped the bleeding completely. We fulgurated the bleeding vessels and took all the clips out. We then proceeded to actually resect the anterior lobe which was pendulating toward the bladder neck. It was also about 10 grams of resection. We then fulgurated with the loop the bleeding vessels. We then fulgurated the right lateral lobe and then evacuated all the clips with BettrLife evacuator. Once the urine came out clear, we could actually visualize the bladder completely. There were no tumors in the bladder. Both ureteral orifices excreting clear urine. There were no bleeding vessels in the prostatic fossa. We then proceeded to take the resectoscope and place a #22-Greek Dumont catheter and inflated the balloon to 30 mL for contiguous irrigation with normal saline. PLAN: The patient will pass to recovery then to the floor. He will be admitted by the hospitalist service. He will have continuous irrigation until it is titrated, until the urine is totally clear. Once it is clear, he will be discharged home with a Dumont catheter for 5 days. He will continue antibiotics orally and pain medication. He will followup at [facility] in 1 week for removal of the Dumont catheter. JEFFERY
[2016-12-08 02:00] VITALS: BP 159/73
[2016-12-08] MEDS: LevoFLOXacin 500 MG TABLET PO SCH (05:31)
[2016-12-08 06:00] VITALS: BP 138/65
[2016-12-08 10:05] LABS: ANION GAP 5 MEQ/L (8-16); BLOOD UREA NITROGEN 19 MG/DL (7-18); CARBON DIOXIDE LEVEL 29 MEQ/L (21-32); CHLORIDE LEVEL 109 MEQ/L (98-107); CREATININE FOR GFR 1.05 MG/DL (0.70-1.30); GLOMERULAR FILTRATION RATE > 60.0 (>42); GLUCOSE, FASTING 101 MG/DL (83-110); POTASSIUM SERUM 4.3 MEQ/L (3.5-5.1); SODIUM LEVEL 143 MEQ/L (136-145)
[2016-12-08 10:06] LABS: MEAN CORPUSCULAR HEMOGLOBIN 32.6 pg (27.0-33.0); MEAN CORPUSCULAR HGB CONC 34.4 g/dl (32.0-36.5); MEAN CORPUSCULAR VOLUME 94.7 fl (80.0-96.0); RED CELL DISTRIBUTION WIDTH 13.1 % (11.5-14.5); WHITE BLOOD COUNT 8.9 K/mm3 (4.0-10.0)
[2016-12-08] MEDS ORDERED: MOM 30ML SUSPENSION UDC PO PRN (10:30)
[2016-12-08] MEDS ORDERED: FLEET ENEMA PR PRN (10:30)
--- NOTE | 2016-12-08 10:41 | IPN ---
DATE: 12/08/2016 76-year-old gentleman seen at bedside. He continues with Dumont catheter and continuous bladder irrigation. Denies any chest pain, shortness breath, productive sputum, cough or hemoptysis. OBJECTIVE: Temperature is 98.1, pulse 63, respiratory rate 18, BP 138/65, SPO2 is 97% on room air. GENERAL: The patient appears to be in no acute distress, is alert and oriented. HEENT: Unremarkable. LUNGS: Clear. HEART: Regular rate and rhythm. ABDOMEN: Soft. EXTREMITIES: No edema. No calf tenderness. LABORATORY DATA: White count is 8.9, hemoglobin 13.9, platelets 186,000. Sodium 143, potassium 4.3, chloride 109, bicarb 29, anion gap 5, BUN is 19, creatinine 1.05, glucose 101, magnesium 2.0. ASSESSMENT/PLAN: 1. Gross hematuria status post transurethral resection of prostate (TURP). Dumont catheter. Continuous bladder irrigation currently going and appreciate Dr. Ace's input. 2. Elevated blood sugar. Today appears to be normalized. His hemoglobin A1c was 5.5. Will continue to check his BMP daily. 3. Bradycardia. Resolved. 4. Hypertension status post verapamil. He is continued with lisinopril with hold parameters. No current issues. 5. Benign prostatic hypertrophy (BPH) status post TURP. Not on any medications. He does have a Dumont catheter in place with continuous bladder irrigation. Appreciate Dr. Ace's input. He will likely need to go home with a Dumont catheter and outpatient followup. 6. Chronic back pain. Continue with Tylenol. 7. Deep vein thrombosis (DVT) prophylaxis. Thromboembolic deterrent stockings (TEDS) and sequential compression devices (SCD) due to the underlying hematuria. DISPOSITION: Anticipate home discharge in the next 1-[address] Ace's recommendation, once is clear he can be discharged home with Dumont catheter and followup outpatient.
[2016-12-08] MEDS: DOCUSATE SODIUM 100 MG CAP PO SCH ×2 (10:56→20:35)
[2016-12-08] MEDS: oxyCODONE 5MG TAB PO PRN ×2 (10:56→17:34)
[2016-12-08] MEDS: MIRALAX *UNIT DOSE* 17GM PACKET PO SCH (10:56)
[2016-12-08 14:00] VITALS: BP 121/59
[2016-12-08] MEDS: LISINOPRIL 5 MG TAB PO SCH (20:39)
[2016-12-08] MEDS: ACETAMINOPHEN 650MG ER TAB (TYLENOL ARTHRITIS) PO PRN (21:00)
[2016-12-08 22:00] VITALS: BP 155/66
[2016-12-09] MEDS: LevoFLOXacin 500 MG TABLET PO SCH (05:14)
[2016-12-09 06:15] VITALS: BP 154/68
[2016-12-09 07:27] LABS: MEAN CORPUSCULAR HEMOGLOBIN 32.4 pg (27.0-33.0); MEAN CORPUSCULAR HGB CONC 34.1 g/dl (32.0-36.5); MEAN CORPUSCULAR VOLUME 94.9 fl (80.0-96.0); RED CELL DISTRIBUTION WIDTH 13.2 % (11.5-14.5); WHITE BLOOD COUNT 7.1 K/mm3 (4.0-10.0)
[2016-12-09 07:40] LABS: ANION GAP 4 MEQ/L (8-16); BLOOD UREA NITROGEN 21 MG/DL (7-18); CALCIUM LEVEL 8.9 MG/DL (8.8-10.2); CARBON DIOXIDE LEVEL 31 MEQ/L (21-32); CHLORIDE LEVEL 107 MEQ/L (98-107); CREATININE FOR GFR 1.07 MG/DL (0.70-1.30); GLOMERULAR FILTRATION RATE > 60.0 (>42); GLUCOSE, FASTING 102 MG/DL (83-110); MAGNESIUM LEVEL 2.3 MG/DL (1.8-2.4); POTASSIUM SERUM 4.4 MEQ/L (3.5-5.1); SODIUM LEVEL 142 MEQ/L (136-145)
[2016-12-09] MEDS: DOCUSATE SODIUM 100 MG CAP PO SCH ×2 (08:07→20:32)
[2016-12-09] MEDS: MIRALAX *UNIT DOSE* 17GM PACKET PO SCH (08:07)
[2016-12-09] MEDS ORDERED: MAGNESIUM CITRATE 300 ML BTL PO ONE (09:30)
--- NOTE | 2016-12-09 13:43 | IPN ---
DATE: 12/09/2016 Patient was febrile overnight. Temperature of 100.7. Was asymptomatic. This morning the fever resolved without any intervention. The patient's hematuria has resolved, currently producing yellow urine with brown-red sediments. No clots. The patient is anxious about leaving the hospital. Still remains constipated. Unable to make a bowel movement. Passing gas. Denies any chest pain, pressure or discomfort, abdominal pain, diarrhea. Reported constipation. Denies any nausea or vomiting. VITAL SIGNS: Maximum temperature (t-max) 100.7, current temperature 98.3, pulse 60, respirations 18, blood pressure 154/68, pulse oximetry 96% on room air. LABORATORY DATA: WBC 7.1, hemoglobin and hematocrit 12.8/37.6, platelets 164. Chemistry: Sodium 142, potassium 4.2, chloride 107, bicarbonate 31, BUN 21, creatinine 1.07. PHYSICAL EXAMINATION: GENERAL: The patient is alert and oriented times three. In no acute distress. HEENT: Normocephalic, atraumatic. PULMONARY: Bilaterally clear. CARDIAC: Regular rate and rhythm. Normal S1, S2. ABDOMEN: Soft and nontender. Positive bowel sounds. EXTREMITIES: No edema in bilateral lower extremities. ASSESSMENT AND PLAN: This is a 76-year-old gentleman with underlying medical history of hypertension, benign prostatic hypertrophy (BPH), status post transurethral resection of prostate (TURP), history of hematuria, chronic back pain, who presented to the emergency department with complaints of hematuria. 1. Gross hematuria, status post transurethral resection of prostate (TURP). Dumont catheter. The patient was on continuous bladder irrigation. Appreciate Dr. Ace's input. Currently has Dumont catheter. As per Dr. Ace, the patient can be discharged home on Dumont catheter with outpatient followup in 1 to 2 weeks. 2. Fever of unknown origin. Possible atelectasis. Followup blood cultures. Currently resolved. Withholding antibiotics. Continue to follow. 3. Hyperglycemia. Continue to monitor. 4. Bradyarrhythmia, resolved. 5. Hypertension. Status post verapamil. Continue lisinopril with holding parameters. Continue to follow. 6. Benign prostatic hypertrophy (BPH). Status post TURP. Not on any medications. Currently has a Dumont. Followup urology as outpatient. 7. Chronic back pain. Continue current medications. 8. Deep vein thrombosis (DVT) prophylaxis. Sequential compression device (SCD). Avoid anticoagulation given the patient just recovered from hematuria. 9. Constipation. Given MiraLAX, Senna. We will give a half dose of magnesium citrate. Continue to monitor. DISPOSITION: Likely discharge over the next day or two.
[2016-12-09 14:00] VITALS: BP 136/63
[2016-12-09 20:33] VITALS: BP 136/63
[2016-12-09] MEDS: LISINOPRIL 5 MG TAB PO SCH (20:33)
[2016-12-09 22:00] VITALS: BP 136/63
[2016-12-10] MEDS: LevoFLOXacin 500 MG TABLET PO SCH (05:11)
[2016-12-10 06:00] VITALS: BP 137/62
[2016-12-10 07:41] LABS: MEAN CORPUSCULAR HEMOGLOBIN 32.4 pg (27.0-33.0); MEAN CORPUSCULAR HGB CONC 34.2 g/dl (32.0-36.5); MEAN CORPUSCULAR VOLUME 94.5 fl (80.0-96.0); RED CELL DISTRIBUTION WIDTH 13.1 % (11.5-14.5); WHITE BLOOD COUNT 6.9 K/mm3 (4.0-10.0)
[2016-12-10 08:01] LABS: ANION GAP 5 MEQ/L (8-16); BLOOD UREA NITROGEN 25 MG/DL (7-18); CALCIUM LEVEL 8.4 MG/DL (8.8-10.2); CARBON DIOXIDE LEVEL 30 MEQ/L (21-32); CHLORIDE LEVEL 108 MEQ/L (98-107); GLOMERULAR FILTRATION RATE > 60.0 (>42); GLUCOSE, FASTING 104 MG/DL (83-110); MAGNESIUM LEVEL 2.4 MG/DL (1.8-2.4); POTASSIUM SERUM 4.6 MEQ/L (3.5-5.1); SODIUM LEVEL 143 MEQ/L (136-145)
[2016-12-10] MEDS: DOCUSATE SODIUM 100 MG CAP PO SCH (08:50)
[2016-12-10] MEDS: MIRALAX *UNIT DOSE* 17GM PACKET PO SCH (08:50)
[2016-12-10] MEDS ORDERED: LEVA1TAB2 PO (11:13)
[2016-12-10] MEDS ORDERED: SENN1TAB2 PO (11:13)
--- NOTE | 2016-12-10 16:12 | DSES ---
DATE OF ADMISSION: 12/07/2016 DATE OF DISCHARGE: 12/10/2016 UROLOGIST: Dr. Ace. PRIMARY CARE PROVIDER: Patient used to see primary care provider in [place] but is in the process of searching for another primary care provider. Will attempt to arrange a primary care provider followup for the patient. FINAL DIAGNOSES: 1. Gross hematuria. 2. Fever of unknown origin. 3. Hyperglycemia. 4. Bradyrhythmia. 5. Hypertension. 6. Benign prostatic hypertrophy (BPH). 7. Chronic back pain. 8. Constipation. HISTORY OF PRESENT ILLNESS: This is a 76-year-old male patient with underlying medical history of hypertension, BPH, status post transurethral resection of the prostate (TURP), history of hematuria, chronic back pain, who presented to the emergency room with complaints of blood in the urine. The patient has noted that since his TURP procedure in November 2015, in [place] by Dr. Carroll, has been having on-and-off episodes of blood in his urine. Also noted 3-4 episodes since the procedure causing him to have hematuria. The patient notes that since the day prior to admission, he has been having blood in his urine. Notes that when he went to the bathroom, the patient was passing clots with continuous bleeding. Denies lightheadedness, dizziness, syncope at home. Denies any shortness of breath, chest pain, palpitations. Does note some discomfort with urination. HOSPITAL COURSE: The patient was admitted to the hospital. Dr. Ace has been consulted. Placed on continuous bladder irrigation with continued improvement. Subsequently continuous bladder irrigation was discontinue. Fever was detected during the hospital course. Cultures were sent. The patient's glucose was monitored. Telemetry monitoring was initially observed. The patient's blood pressure medication was given. Deep venous thrombosis (DVT) prophylaxis was provided with sequential compression devices. Bowel regimen has been given for constipation. The patient currently feeling back to baseline. Physical therapy was done. Able to tolerate oral with minimal symptoms. Dumont education has been provided. The patient will be discharged with a Dumont catheter as per Dr. Ace, to followup with urology office in one week. PHYSICAL EXAMINATION: VITAL SIGNS: Temperature 97.8, pulse 60, respirations 17, blood pressure 137/62, pulse oximetry 97% on room air. GENERAL: Patient alert, comfortable, in no acute distress. HEENT: Normocephalic, atraumatic. PULMONARY: Bilateral clear to auscultation. CARDIAC: Regular rate and rhythm. Normal S1, S2. ABDOMEN: Soft, nontender. Positive bowel sounds. EXTREMITIES: No edema bilateral lower extremities. LABORATORY DATA: WBC 6.9, hemoglobin and hematocrit 12.7 over 37.1, platelets 173. Chemistry: Sodium 143, potassium 4.6, chloride 108, bicarbonate 30, BUN 25, creatinine 1. DISCHARGE MEDICATIONS: - Levaquin 500 mg by mouth daily for three more days - senna plus one tablet by mouth twice a day HOME MEDICATIONS: - hydrocodone/acetaminophen 5/325 every six hours as needed will continue - lisinopril 5 mg by mouth daily - MiraLAX one pack by mouth as needed daily - verapamil 180 mg by mouth at bedtime DISCHARGE INSTRUCTIONS: The patient is instructed to followup with a primary care provider. We will be trying to arrange a primary care provider for the patient in the next 7-10 days. Followup with urology in seven days. Return to the hospital if symptoms worsen.
== END 2016-12-10 14:52 | disposition home or self-care (01) | DRG 713 ==
LOC: EDBD 02:24 → M ED 03:31 → M ED INP 10:13 → M MSPAV 13:38 → OBSVTOIN 12-07 11:58
PROVIDERS: ADMIT Internal Medicine; ATTEND Hospitalist
PROC: 0VB08ZZ Excision of Prostate, Via Natural or Artificial Opening Endoscopic (ICD-10-PCS; principal; 2016-12-05)
PROC: 0TCB8ZZ Extirpation of Matter from Bladder, Via Natural or Artificial Opening Endoscopic (ICD-10-PCS; 2016-12-05)
DX: N40.0 Benign prostatic hyperplasia without lower urinary tract symptoms (principal); J98.11 Atelectasis; R31.0 Gross hematuria; I10 Essential (primary) hypertension; K59.00 Constipation, unspecified; M54.5 Low back pain; R50.9 Fever, unspecified; Z79.899 Other long term (current) drug therapy; Z88.0 Allergy status to penicillin; R73.9 Hyperglycemia, unspecified

== ENCOUNTER → 2016-12-25 | Outpatient (CLI) | payer MEDICARE ==
[~2016-12-25] MED LIST: HYDR-3713 PO; LEVA1TAB2 PO; LISI-542 PO; LISI10TA4; MIRA3350 PO; SENN1TAB2 PO; VERA1TAB11; VERA1TAB11 PO
[2016-12-25 18:28] LABS: MEAN CORPUSCULAR HEMOGLOBIN 32.3 pg (27.0-33.0); MEAN CORPUSCULAR VOLUME 94.8 fl (80.0-96.0); RED CELL DISTRIBUTION WIDTH 13.1 % (11.5-14.5)
[2016-12-25 18:43] LABS: ANION GAP 7 MEQ/L (8-16); BLOOD UREA NITROGEN 19 MG/DL (7-18); CALCIUM LEVEL 9.3 MG/DL (8.8-10.2); CARBON DIOXIDE LEVEL 29 MEQ/L (21-32); CHLORIDE LEVEL 107 MEQ/L (98-107); CREATININE FOR GFR 0.87 MG/DL (0.70-1.30); GLOMERULAR FILTRATION RATE > 60.0 (>42); GLUCOSE, FASTING 88 MG/DL (83-110); POTASSIUM SERUM 4.4 MEQ/L (3.5-5.1); SODIUM LEVEL 143 MEQ/L (136-145)
== END ==
LOC: M SMT 13:33
PROVIDERS: ATTEND Nurse Practitioner Women's Health
DX: N40.1 Benign prostatic hyperplasia with lower urinary tract symptoms (principal); Z87.448 Personal history of other diseases of urinary system

== ENCOUNTER → 2016-12-27 | Outpatient (REF) | payer MEDICARE | LOC: M SMT 13:08 | PROVIDERS: ATTEND Urology | DX: N40.1 Benign prostatic hyperplasia with lower urinary tract symptoms (principal) ==

== ENCOUNTER → 2017-01-01 | Outpatient (REF) | payer MEDICARE ==
[2017-01-01 17:37] LABS: MICROSCOPIC INDICATED? MAN YES (NO)
[2017-01-01 20:19] LABS: BACTERIA, URINE MOD AMOUNT; RBC, URINE TNTC /hpf (0-3); WBC, URINE TNTC /hpf (0-3)
[2017-01-01 20:20] LABS: SQUAMOUS EPITHELIAL CELL URINE SMALL AMOUNT /hpf (SMALL AMT); TRANSITIONAL EPI CELLS, URINE SMALL AMOUNT /hpf
[2017-01-01 20:21] LABS: HYALINE CAST, URINE NONE SEEN /lpf (0-1); MICROSCOPIC EXAM PERFORMED
== END ==
LOC: M SMT 16:48
PROVIDERS: ATTEND Urology
DX: N40.1 Benign prostatic hyperplasia with lower urinary tract symptoms (principal); R35.0 Frequency of micturition

== ENCOUNTER → 2017-01-25 | Outpatient (REF) | payer MEDICARE | LOC: M SMT 13:30 | PROVIDERS: ATTEND Family Medicine | DX: R30.0 Dysuria (principal) ==

== ENCOUNTER → 2017-02-05 | Outpatient (REF) | payer MEDICARE ==
[2017-02-05 19:54] LABS: MICROSCOPIC INDICATED? MAN YES (NO)
[2017-02-05 20:14] LABS: BACTERIA, URINE LARGE AMOUNT; HYALINE CAST, URINE NONE SEEN /lpf (0-1); RBC, URINE 15-20 /hpf (0-3); SQUAMOUS EPITHELIAL CELL URINE SMALL AMOUNT /hpf (SMALL AMT); WBC, URINE TNTC /hpf (0-3)
[2017-02-05 20:15] LABS: MICROSCOPIC EXAM PERFORMED
== END ==
LOC: M SMT 14:12
PROVIDERS: ATTEND Urology
DX: R30.0 Dysuria (principal)

== ENCOUNTER → 2017-02-09 | Outpatient (CLI) | payer MEDICARE ==
--- NOTE | 2017-02-09 19:05 | REP ---
MRI LUMBAR SPINE WITHOUT CONTRAST: HISTORY: Bilateral lower extremity weakness. Decreased signal intensity on T2-weighted images is present in the lumbar intervertebral discs. The L1-2 through L4-5 intervertebral discs are decreased in height. These findings are consistent with disc degeneration. A diffuse disc bulge is present at the L1-2 level. There is hypertrophy of the ligamenta flava and posterior articulating facets. These findings produce minimal central canal stenosis. The L1 nerves exit the neural foramina without compression. A diffuse disc bulge is present at the L2-3 level. There is hypertrophy of the ligamenta flava and posterior articulating facets. These findings produce mild central canal stenosis. The L2 nerves exit the neural foramina without compression. A diffuse disc bulge is present at the L3-4 level. There is hypertrophy of the ligamenta flava and posterior articulating facets. These findings produce moderate central canal stenosis. The L3 nerves exit the neural foramina without compression. A diffuse disc bulge with associated osteophyte formation is present at the L4-5 level. There is hypertrophy of the ligamenta flava and posterior articulating facets. These findings produce severe central canal stenosis. There is compression of the L4 nerves in the neural foramina. A diffuse disc bulge is present at the L5-S1 level. There is minimal compression of the thecal sac. There is hypertrophy of the posterior articulating facets. The L5 nerves exit the neural foramina without compression. The conus medullaris is normal in appearance terminating at the level of the L1-2 intervertebral disc. A hemangioma is present in the L2 vertebral body. Increased signal intensity on T2-weighted images is present in the endplates of the L4 and L5 vertebral bodies. This represents degenerative change. Bilateral renal cysts are present. IMPRESSION: 1. Minimal central canal stenosis at the L1-2 level secondary to disc bulge, ligamentous and facet hypertrophy. 2. Mild central canal stenosis at the L2-3 level secondary to disc bulge, ligamentous and facet hypertrophy. 3. Moderate central canal stenosis at the L3-4 level secondary to disc bulge, ligamentous and facet hypertrophy. 4. Severe central canal stenosis at the L4-5 level secondary to disc bulge, ligamentous and facet hypertrophy and osteophyte formation . There is compression of the L4 nerves in the neural foramina. 5. Diffuse disc bulge at the L5-S1 level with minimal thecal sac compression. 6. Bilateral renal cysts. Ultrasound may be helpful for further evaluation. Signed by Berry Arreaga MD 02/13/2017 08:14 A
== END ==
LOC: M RAD 12:47
PROVIDERS: ATTEND Family Medicine
DX: M51.86 Other intervertebral disc disorders, lumbar region (principal); N28.1 Cyst of kidney, acquired; M54.5 Low back pain; R29.898 Other symptoms and signs involving the musculoskeletal system

== ENCOUNTER → 2017-03-22 | Outpatient (REF) | payer MEDICARE | LOC: M SMT 16:43 | PROVIDERS: ATTEND Urology | DX: R39.9 Unspecified symptoms and signs involving the genitourinary system (principal) | CPT/HCPCS: 51798; 81001; 87086; G0463 ==

== ENCOUNTER → 2017-08-01 | Outpatient (REF) | payer MEDICARE ==
[2017-08-01 17:24] LABS: APPEARANCE, URINE HAZY (CLEAR); BACTERIA, URINE AUTO NEGATIVE (NEGATIVE); BILIRUBIN, URINE AUTO NEGATIVE (NEGATIVE); BLOOD, URINE BLOOD NEGATIVE (NEGATIVE); COLOR, URINE YELLOW (YELLOW); GLUCOSE, URINE (UA) AUTO NEGATIVE (NEGATIVE); KETONE, URINE AUTO NEGATIVE (NEGATIVE); LEUKOCYTE ESTERASE, URINE AUTO NEGATIVE (NEGATIVE); NITRITE, URINE AUTO NEGATIVE (NEGATIVE); PROTEIN, URINE AUTO 1+ mg/dL (NEGATIVE); RBC, URINE AUTO 2 /HPF (0-3); SPECIFIC GRAVITY URINE AUTO 1.019 (1.002-1.035); SQUAMOUS EPITHELIAL CELL UR AU 1 /HPF (0-6); UROBILINOGEN, URINE AUTO 0.2 mg/dL (0.0-2.0); WBC, URINE AUTO 5 /HPF (0-3)
== END ==
LOC: M SMT 16:57
DX: N40.1 Benign prostatic hyperplasia with lower urinary tract symptoms (principal)
CPT/HCPCS: 81001

== ENCOUNTER → 2017-12-11 | Outpatient (REF) | payer MEDICARE | LOC: M LAB REF 17:11 | DX: M71.30 Other bursal cyst, unspecified site (principal) | CPT/HCPCS: 87077 ==

== ENCOUNTER → 2018-01-10 | Outpatient (CLI) | payer MEDICARE ==
[2018-01-10 18:28] LABS: BASO # 0.1 10^3/uL (0.0-0.2); BASO % 0.7 % (0.0-1.0); EOS # 0.3 10^3/uL (0.0-0.50); EOS % 3.8 % (0.0-3.0); HEMATOCRIT 45.1 % (42.0-52.0); HEMOGLOBIN 14.9 g/dl (13.5-17.5); IMMATURE GRANULOCYTE % 0.3 % (0-3.0); LYMPH # 1.4 10^3/uL (1.5-4.5); LYMPH % 18.4 % (24.0-44.0); MEAN CORPUSCULAR HEMOGLOBIN 31.6 pg (27.0-33.0); MEAN CORPUSCULAR VOLUME 95.8 fl (80.0-96.0); MONO # 0.7 10^3/uL (0.0-0.8); MONO % 8.8 % (0.0-5.0); PLATELET COUNT, AUTOMATED 215 10^3/uL (150-450); RED BLOOD COUNT 4.71 10^6/uL (4.30-6.10); RED CELL DISTRIBUTION WIDTH 12.9 % (11.5-14.5); WHITE BLOOD COUNT 7.4 10^3/uL (4.0-10.0)
[2018-01-10 18:56] LABS: ALBUMIN 4.2 GM/DL (3.2-5.2); ALBUMIN/GLOBULIN RATIO 1.56 (1.00-1.93); ALKALINE PHOSPHATASE 78 U/L (45-117); ALT/SGPT 27 U/L (12-78); ANION GAP 7 MEQ/L (8-16); AST/SGOT 15 U/L (7-37); BILIRUBIN,TOTAL 0.5 MG/DL (0.2-1.0); BLOOD UREA NITROGEN 29 MG/DL (7-18); CALCIUM LEVEL 9.3 MG/DL (8.8-10.2); CARBON DIOXIDE LEVEL 29 MEQ/L (21-32); CHLORIDE LEVEL 110 MEQ/L (98-107); CREATININE FOR GFR 1.02 MG/DL (0.70-1.30); GLOMERULAR FILTRATION RATE > 60.0 (>42); GLUCOSE, FASTING 80 MG/DL (70-100); POTASSIUM SERUM 4.9 MEQ/L (3.5-5.1); SODIUM LEVEL 146 MEQ/L (136-145); TOTAL PROTEIN 6.9 GM/DL (6.4-8.2)
[2018-01-10 19:18] LABS: COLLAGEN EPINEPHRINE 167 SECONDS (74-162)
[2018-01-10 19:32] LABS: INR 1.07
[2018-01-10 19:33] LABS: PARTIAL THROMBOPLASTIN TIME 29.6 SECONDS (25.4-37.6)
[2018-01-10 19:47] LABS: COLLAGEN ADP 117 SECONDS (56-103)
== END ==
LOC: M LAB 16:54
DX: Z01.818 Encounter for other preprocedural examination (principal); M47.814 Spondylosis without myelopathy or radiculopathy, thoracic region; R00.1 Bradycardia, unspecified; R94.31 Abnormal electrocardiogram [ECG] [EKG]; Z79.899 Other long term (current) drug therapy
CPT/HCPCS: 71046

== ENCOUNTER → 2018-02-08 | Outpatient (REF) | payer MEDICARE ==
[2018-02-08 18:26] LABS: APPEARANCE, URINE HAZY (CLEAR); BACTERIA, URINE AUTO NEGATIVE (NEGATIVE); BILIRUBIN, URINE AUTO NEGATIVE (NEGATIVE); BLOOD, URINE BLOOD NEGATIVE (NEGATIVE); COLOR, URINE YELLOW (YELLOW); GLUCOSE, URINE (UA) AUTO NEGATIVE (NEGATIVE); KETONE, URINE AUTO NEGATIVE (NEGATIVE); LEUKOCYTE ESTERASE, URINE AUTO TRACE (NEGATIVE); MUCUS, URINE MODERATE (NEGATIVE); NITRITE, URINE AUTO NEGATIVE (NEGATIVE); PROTEIN, URINE AUTO 1+ mg/dL (NEGATIVE); RBC, URINE AUTO 1 /HPF (0-3); SPECIFIC GRAVITY URINE AUTO 1.025 (1.002-1.035); SQUAMOUS EPITHELIAL CELL UR AU 0 /HPF (0-6); UROBILINOGEN, URINE AUTO 0.2 mg/dL (0.0-2.0); WBC, URINE AUTO 10 /HPF (0-3)
== END ==
LOC: M SMT 17:10
DX: R97.20 Elevated prostate specific antigen [PSA] (principal)
CPT/HCPCS: 81001

== ENCOUNTER → 2018-03-08 | Outpatient (CLI) | payer MEDICARE | LOC: M LAB 10:44 | DX: R97.20 Elevated prostate specific antigen [PSA] (principal); M43.16 Spondylolisthesis, lumbar region; M25.78 Osteophyte, vertebrae; M41.86 Other forms of scoliosis, lumbar region; M41.87 Other forms of scoliosis, lumbosacral region; M47.896 Other spondylosis, lumbar region; Z98.890 Other specified postprocedural states | CPT/HCPCS: 72100 ==

== ENCOUNTER → 2018-03-08 | Outpatient (CLI) | payer MEDICARE | LOC: M RAD 10:56 | DX: M43.16 Spondylolisthesis, lumbar region (principal); M25.78 Osteophyte, vertebrae; M41.86 Other forms of scoliosis, lumbar region; M41.87 Other forms of scoliosis, lumbosacral region; M47.896 Other spondylosis, lumbar region; Z98.890 Other specified postprocedural states ==

== ENCOUNTER → 2018-07-27 | Outpatient (REF) | payer MEDICARE ==
[~2018-07-27] MED LIST changes: +ACET500T15 PO; +CIPR-250 PO; +COLA100C5 PO; +COLA1TAB PO; +PAIN MED
== END ==
LOC: M LAB REF 10:23
PROVIDERS: ATTEND Physician Assistant
DX: N39.0 Urinary tract infection, site not specified (principal)

== ENCOUNTER 2018-08-27 19:23 | Emergency (ER) | payer MEDICARE ==
[2018-08-27] MEDS ORDERED: NS 1,000 ML IV ONE (19:45)
[2018-08-27] MEDS: GASTROGRAFIN SOLUTION 30ML PO SCH ×2 (20:22→20:35)
[2018-08-27 20:30] LABS: BASO # 0.1 10^3/uL (0.0-0.2); BASO % 0.8 % (0.0-1.0); EOS # 0.6 10^3/uL (0.0-0.50); EOS % 7.5 % (0.0-3.0); HEMATOCRIT 41.4 % (42.0-52.0); HEMOGLOBIN 13.7 g/dl (13.5-17.5); LYMPH # 1.1 10^3/uL (1.5-4.5); LYMPH % 14.4 % (24.0-44.0); MEAN CORPUSCULAR HEMOGLOBIN 31.5 pg (27.0-33.0); MEAN CORPUSCULAR HGB CONC 33.1 g/dl (32.0-36.5); MEAN CORPUSCULAR VOLUME 95.2 fl (80.0-96.0); MONO % 13.2 % (0.0-5.0); NEUTROPHILS # 4.8 10^3/uL (1.8-7.7); PLATELET COUNT, AUTOMATED 206 10^3/uL (150-450); RED BLOOD COUNT 4.35 10^6/uL (4.30-6.10); WHITE BLOOD COUNT 7.5 10^3/uL (4.0-10.0)
[2018-08-27 20:58] LABS: ALBUMIN 3.6 GM/DL (3.2-5.2); ALT/SGPT 42 U/L (12-78); BILIRUBIN,DIRECT < 0.1 MG/DL (0.0-0.2); BILIRUBIN,TOTAL 0.3 MG/DL (0.2-1.0); BLOOD UREA NITROGEN 32 MG/DL (7-18); CALCIUM LEVEL 9.3 MG/DL (8.8-10.2); CARBON DIOXIDE LEVEL 28 MEQ/L (21-32); CHLORIDE LEVEL 111 MEQ/L (98-107); CREATININE FOR GFR 0.88 MG/DL (0.70-1.30); GLOMERULAR FILTRATION RATE > 60.0 (>42); GLUCOSE, FASTING 104 MG/DL (70-100); LIPASE 157 U/L (73-393); POTASSIUM SERUM 4.8 MEQ/L (3.5-5.1); SODIUM LEVEL 144 MEQ/L (136-145); TOTAL PROTEIN 6.2 GM/DL (6.4-8.2)
[2018-08-27] MEDS ORDERED: ISOVUE-370 76% 125ML VIAL (Q9967 PER ML) As Ordered ONE (22:18)
--- NOTE | 2018-08-27 23:15 | REPVR ---
EXAM: CT Abdomen and Pelvis With Contrast EXAM DATE/TIME: 08/27/2018 10:34 PM CLINICAL HISTORY: 78 years old, male; Pain; Abdominal pain; Generalized; Prior surgery; Surgery date: 1-6 months TECHNIQUE: Imaging protocol: Axial computed tomography images of the abdomen and pelvis with intravenous contrast. Coronal and sagittal reformatted images were created and reviewed. Radiation optimization: All CT scans at this facility use at least one of these dose optimization techniques: automated exposure control; mA and/or kV adjustment per patient size (includes targeted exams where dose is matched to clinical indication); or iterative reconstruction. Contrast material: ISOVUE 370 Contrast volume: 100 ml Contrast route: IV COMPARISON: CT ABD/PEL W/IV CONTRAST ONLY 12/05/2016 4:20 AM FINDINGS: Lower thorax: 5 millimeter noncalcified nodule right middle lobe.For patients at low risk (minimal or absent history of smoking and of other known risk factors), no routine follow-up is indicated. For patients at high risk (history of smoking or of other known risk factors), consider optional CT at 12 months. (Jacob et al., Fleischner Society, 2017) ABDOMEN: Liver: Multiple hepatic cysts measure up to 8 centimeters and the left lobe of the liver, stable in comparison to the prior study. Gallbladder and bile ducts: Sludge or gravel layered dependently in the gallbladder, stable. Pancreas: Normal. No ductal dilation. Spleen: Normal. No splenomegaly. Adrenals: There is bilateral adrenal hyperplasia. Kidneys and ureters: Left renal cysts measure up to 11 x 10 centimeters, stable. Stomach and bowel: There is increased feces throughout the colon consistent with constipation. Possible fecal impaction. Appendix: No evidence of appendicitis. PELVIS: Bladder: Thickening of the bladder base may be related to intrinsic mucosal thickening in the urinary bladder versus invasive disease secondary to prostatic carcinoma. Clinical correlation needed. Reproductive: The prostate gland demonstrates moderate hyperplasia. Irregular contour the prostate may indicate neoplasm. ABDOMEN and PELVIS: Intraperitoneal space: Normal. No free air. No significant fluid collection. Bones/joints: The spine demonstrates mild degenerative changes. Mild anterolisthesis of L5 and S1. Degenerative changes in the mid and lower lumbar spine. Osteoporosis. Soft tissues: Right inguinal hernia. Vasculature: Normal. No abdominal aortic aneurysm. Lymph nodes: Normal. No enlarged lymph nodes. IMPRESSION: 1. Multiple hepatic cysts measure up to 8 centimeters and the left lobe of the liver, stable in comparison to the prior study. 2. Sludge or gravel layered dependently in the gallbladder, stable. 3. There is bilateral adrenal hyperplasia. 4. There is increased feces throughout the colon consistent with constipation. Possible fecal impaction. 5. Moderate prostatic hyperplasia. Possible prostatic neoplasm. Electronically signed by: Edwar Lopez On 08/27/2018 23:15:28 PM
[2018-08-27 23:25] VITALS: BP 169/74
--- NOTE | 2018-08-28 10:58 | ED PDOC ---
Post-Departure Follow-Up certifed letter sent to pt re formal report of ct abd/p. see reading please and pt needs urology fu and pcp Benito Ochoa MD Aug 28, 2018 10:58
== END 2018-08-28 00:02 | disposition home or self-care (01) ==
LOC: EDBD 19:23 → M ED 19:23
DX: R10.9 Unspecified abdominal pain (principal); R11.0 Nausea; I10 Essential (primary) hypertension; M54.5 Low back pain; N40.0 Benign prostatic hyperplasia without lower urinary tract symptoms; Z79.899 Other long term (current) drug therapy
CPT/HCPCS: 74177; 80048; 80076; 81001; 83605; 83690; 85025; 93041; 96360; 96361; 99284; Q9963; Q9967

== ENCOUNTER → 2018-08-27 | Outpatient (REF) | payer MEDICARE | LOC: M LAB REF 12:32 | PROVIDERS: ATTEND Physician Assistant Medical | DX: R10.9 Unspecified abdominal pain (principal) ==